=== PATIENT | female | born 1930 | race Caucasian/White ===

== ENCOUNTER 2017-12-09 10:26 | Inpatient (IN) | payer OTHER ==
[2017-12-09 11:24] LABS: Protime INR 1.04
--- NOTE | 2017-12-09 11:27 | RAD REPORT ---
EXAM DESCRIPTION: RAD - Chest Single View - 12/09/2017 11:08 am CLINICAL HISTORY: Hypertension, altered consciousness. COMPARISON: 04/21/2012 FINDINGS: Portable technique limits examination quality. The lungs are grossly clear. The heart is normal in size. No displaced fractures.Mildly tortuous thor acic aorta. IMPRESSION: No acute intrathoracic process suspected.
--- NOTE | 2017-12-09 11:32 | RAD REPORT ---
EXAM DESCRIPTION: CT - Head Brain Wo Cont - 12/09/2017 11:24 am CLINICAL HISTORY: Altered consciousness COMPARISON: None. TECHNIQUE: All CT scans are performed using dose optimization technique as appropriate and may inclu de automated exposure control or mA/KV adjustment according to patient size. FINDINGS: No intracranial hemorrhage, hydrocephalus or extra-axial fluid collection.Advanced general ized brain atrophy is present with moderate to advanced periventricular and deep white matter chronic microvascular ischemic changes.No areas of brain edema or evidence of midline shift. The paranasal sinuses and mastoids are clear. The calvarium is intact. IMPRESSION: No acute intracranial abnormality.
[2017-12-09 11:33] LABS: Potassium 4.2 mEq/L (3.6-5.0)
[2017-12-09 11:38] LABS: Absolute Monocytes 1.9 K/uL (0.1-1.3); Basophils % 0.6 % (0-1.3); Eosinophils % 0.3 % (0-4.4); Hematocrit 42.1 % (36.0-45.0); Lymphocytes % 24.9 % (15.3-44.8); MCH 26.8 pg (27.0-35.0); MCV 83.1 fL (80-100); MPV 8.8 fL (7.6-11.3); Monocytes % 9.5 % (3.3-12.3); RBC Red Blood Cell Count 5.07 M/uL (3.86-4.86)
[2017-12-09 11:39] LABS: Albumin 3.9 g/dL (3.2-5.5); Bilirubin Direct 0.1 mg/dL (0-0.2); Bilirubin Total 0.9 mg/dL (0.3-1.2); Protein, Total 6.9 g/dL (6.0-8.3)
[2017-12-09] MEDS ORDERED: NA CHLORIDE 0.9% 1,000 ML ONE (12:16)
--- NOTE | 2017-12-09 12:39 | EDPHYS ---
Physician Documentation [facility] Name: Jackie Richards Age: 87 yrs Sex: Female : 1930 Arrival Date: 12/09/2017 Time: 10:30 Bed 5 Private MD: ED Physician Catracho Ford HPI: 12/09 12:26 This 87 yrs old Female presents to ER via Wheelchair with complaints of gs Altered Mental Status weakness. 12:26 The patient presents to the emergency department with weakness of the left lower gs extremity, that is severe, difficulty standing, tremor. Onset: The symptoms/episode began/occurred 2 day(s) ago. Associated signs and symptoms: Pertinent negatives: fever. Severity of symptoms: At their worst the symptoms were severe in the emergency department the symptoms are unchanged. Current symptoms: confusion, paralysis or paresis, of the right leg and left leg, that is moderate. The patient has experienced similar episodes in the past, a few times. The patient has not recently seen a physician. Historical: - Allergies: 10:37 PENICILLINS; lk1 - Home Meds: 10:40 levothyroxine 25 mcg tab 1 tab every other day [Active]; amlodipine 2.5 mg tab 2 tabs lk1 once daily [Active]; aspirin 81 mg Oral chew 1 tab once daily [Active]; Zetia 10 mg Oral tab 1 tab once daily [Active]; Aricept 10 mg Oral tab 1 tab once daily [Active]; calcitriol 0.25 mcg oral cap 1 cap every other day [Active]; memantine 5 mg oral tab 1 tabs daily [Active]; - PMHx: 10:37 ckd; Hypertension; Dementia; lk1 10:40 Hypothyroidism; High Cholesterol; lk1 - Immunization history:: Adult Immunizations up to date. - Social history:: Smoking status: Patient/guardian denies using tobacco. ROS: 12:26 All other systems are negative. gs Exam: 12:26 Head/Face: Normocephalic, atraumatic. Eyes: Pupils equal round and reactive to light, gs extra-ocular motions intact. Lids and lashes normal. Conjunctiva and sclera are non-icteric and not injected. Cornea within normal limits. Periorbital areas with no swelling, redness, or edema. ENT: Nares patent. No nasal discharge, no septal abnormalities noted. Tympanic membranes are normal and external auditory canals are clear. Oropharynx with no redness, swelling, or masses, exudates, or evidence of obstruction, uvula midline. Mucous membranes moist. Neck: Trachea midline, no thyromegaly or masses palpated, and no cervical lymphadenopathy. Supple, full range of motion without nuchal rigidity, or vertebral point tenderness. No Meningismus. Chest/axilla: Normal chest wall appearance and motion. Nontender with no deformity. No lesions are appreciated. 12:26 Respiratory: Lungs have equal breath sounds bilaterally, clear to auscultation and percussion. No rales, rhonchi or wheezes noted. No increased work of breathing, no retractions or nasal flaring. Abdomen/GI: Soft, non-tender, with normal bowel sounds. No distension or tympany. No guarding or rebound. No evidence of tenderness throughout. Back: No spinal tenderness. No costovertebral tenderness. Full range of motion. Skin: Warm, dry with normal turgor. Normal color with no rashes, no lesions, and no evidence of cellulitis. MS/ Extremity: Pulses equal, no cyanosis. Neurovascular intact. Full, normal range of motion. 12:26 Constitutional: The patient appears awake. 12:26 Cardiovascular: Rate: normal, Rhythm: irregular, Pulses: no pulse deficits are appreciated. 12:26 ECG was reviewed by the Attending Physician. 12:26 Neuro: Orientation: Not oriented to person, Cranial nerves: CN II- XII are normal as tested, Motor: moves all fours, Strength is 2/5 in the left leg, Sensation: no obvious gross deficits, Abnormal movements: resting tremor, is located in the right arm, left arm, right leg and left leg. Vital Signs: 11:52 BP 171 / 87; Pulse 82; Resp 17; Pulse Ox 97% on R/A; aj 12:10 BP 160 / 100; Pulse 89; Resp 22; Temp 98.5(O); Pulse Ox 94% on R/A; Weight 74.84 kg; aj Height 5 ft. 4 in. (162.56 cm); 14:00 BP 173 / 135; Pulse 88; Resp 17; Pulse Ox 99% on R/A; aj 12:10 Body Mass Index 28.32 (74.84 kg, 162.56 cm) aj NIH Stroke Scale Scores: 12:26 NIHSS Score: 6 gs MDM: 10:57 Patient medically screened. 12:26 Data reviewed: vital signs, nurses notes. Physician consultation: Dave Perez MD regarding consult, and will see patient in inpatient room. ED course: no tpa out of window. 12/09 10:56 Order name: CPK; Complete Time: 11:44 12/09 10:56 Order name: Basic Metabolic Panel; Complete Time: 11:44 12/09 10:56 Order name: BNP; Complete Time: 11:44 12/09 10:56 Order name: CBC with Diff; Complete Time: 11:44 12/09 10:56 Order name: LFT's; Complete Time: 11:44 12/09 10:56 Order name: Magnesium; Complete Time: 11:44 12/09 10:56 Order name: PT-INR; Complete Time: 11:33 12/09 10:56 Order name: Troponin (emerg Dept Use Only); Complete Time: 11:44 12/09 10:56 Order name: XRAY Chest (1 view); Complete Time: 11:33 12/09 10:56 Order name: CT Head Brain wo Cont; Complete Time: 11:33 12/09 11:45 Order name: Lactate; Complete Time: 13:57 12/09 11:45 Order name: Procalcitonin; Complete Time: 13:57 12/09 11:45 Order name: Urinalysis 12/09 12:27 Order name: Urine Dipstick--Ancillary (enter results); Complete Time: 13:57 12/09 10:56 Order name: EKG; Complete Time: 10:57 12/09 10:56 Order name: Cardiac monitoring; Complete Time: 11:01 12/09 10:56 Order name: EKG - Nurse/Tech; Complete Time: 11:02 12/09 10:56 Order name: IV Saline Lock; Complete Time: 11: 12/09 10:56 Order name: Labs collected and sent; Complete Time: 11:02 12/09 10:56 Order name: O2 Per Protocol; Complete Time: 11:02 12/09 10:56 Order name: O2 Sat Monitoring; Complete Time: 11: 12/09 10:56 Order name: Urine Dipstick-Ancillary (obtain specimen); Complete Time: 12:22 12/09 12:53 Order name: CONS Physician Consult EDMS EC:26 Rate is 84 beats/min. Rhythm is regular. Q waves are Old. T waves are Flattened. Clinical impression: Abnormal EKG without significant change. Interpreted by me. Administered Medications: 12:09 Drug: NS 0.9% 1000 ml Route: IV; Rate: 1 bolus; Site: left antecubital; aj 14:00 Drug: Enalaprilat 1.25 mg Route: IV; Rate: bolus; Site: left antecubital; aj Disposition: 12/09/17 12:39 Hospitalization ordered by Boubacar Casillas for Inpatient Admission. Preliminary diagnosis is Cerebral infarction. - Bed requested for Telemetry/MedSurg (Inpatient). - Status is Inpatient Admission. hb - Condition is Stable. - Problem is new. - Symptoms are unchanged. UTI on Admission? Yes NIH Stroke Scale - NIH Stroke Score Date: 12/09/2017 Time: 12:26 Total Score = 6 1a. Level of Consciousness (LOC) - 0(Alert) 1b. Level of Consciousness (LOC) (Year \T\ Age) - 1(One) 1c. LOC Commands (Open \T\ Closes Eyes/Manager Purchasing) - 0(Both) 2. Best Gaze (Lateral Gaze Paresis) - 0(Normal) 3. Visual Field Loss - 0(No visual loss) 4. Facial Palsy - 0(Normal) 5a. Left Arm: Motor (10-second hold) - 0(No drift) 5b. Right Arm: Motor (10-second hold) - 0(No drift) 6a. Left Leg: Motor (5-second hold - always test supine) - 3(No effort against gravity) 6b. Right Leg: Motor (5-second hold - always test supine) - 2(Drift, some effort against gravity) 7. Limb Ataxia (finger/nose \T\ heel/black - test with eyes open) - 0(Absent) 8. Sensory Loss (pinprick arms/legs/face) - 0(Normal) 9. Best Language: Aphasia (description/naming/reading) - 0(No aphasia) 10. Dysarthria (speech clarity - read or repeat words) - 0(Normal) 11. Extinction and Inattention (visual/tactile/auditory/spatial/personal) - 0(No abnormality) Initials: gs Signatures: Dispatcher [employer] Misa Ramsey Amanda RN RN Jamila Sanabria, RN RN lk1 Alannah Chávez RN RN Catracho Carter MD MD gs
--- NOTE | 2017-12-09 12:39 | ER ---
Nurse's Notes [facility] Name: Jackie Richards Age: 87 yrs Sex: Female : 1930 Arrival Date: 12/09/2017 Time: 10:30 Bed 5 Private MD: Diagnosis: Cerebral infarction Presentation: 12/09 10:35 Presenting complaint: Child states: "Since Saturday she has not been able to walk with lk1 her walker and she keeps staring us in the face, but she isn't responsive to us. She also has been shaking really bad. Transition of care: patient was not received from another setting of care. Onset of symptoms was December 07, 2017. Care prior to arrival: None. 10:35 Method Of Arrival: Wheelchair lk1 10:35 Acuity: LEON 2 lk1 Triage Assessment: 10:40 General: Appears in no apparent distress. Behavior is calm, cooperative, appropriate lk1 for age. Pain: Denies pain. Neuro: Level of Consciousness is awake, confused, Oriented to person. 10:40 Cardiovascular: Capillary refill is brisk Patient's skin is warm and dry. Respiratory: lk1 Airway is patent Respiratory effort is even, unlabored, Respiratory pattern is regular, symmetrical. Historical: - Allergies: 10:37 PENICILLINS; lk1 - Home Meds: 10:40 levothyroxine 25 mcg tab 1 tab every other day [Active]; amlodipine 2.5 mg tab 2 tabs lk1 once daily [Active]; aspirin 81 mg Oral chew 1 tab once daily [Active]; Zetia 10 mg Oral tab 1 tab once daily [Active]; Aricept 10 mg Oral tab 1 tab once daily [Active]; calcitriol 0.25 mcg oral cap 1 cap every other day [Active]; memantine 5 mg oral tab 1 tabs daily [Active]; - PMHx: 10:37 ckd; Hypertension; Dementia; lk1 10:40 Hypothyroidism; High Cholesterol; lk1 - Immunization history:: Adult Immunizations up to date. - Social history:: Smoking status: Patient/guardian denies using tobacco. Screenin:07 Abuse screen: Denies threats or abuse. Denies injuries from another. Nutritional aj screening: No deficits noted. Tuberculosis screening: No symptoms or risk factors identified. Fall Risk Gait- Weak (10 pts.). Mental Status- Overestimates/Forgets Limitations (15 pts.). 13:30 Patient has been NPO before screening. The patient is not alert, or is unable to follow hb commands. Bedside swallow screening discontinued. Patient kept NPO until cleared by Speech Therapy or Physician. The patient failed the bedside swallow screening. The patient will be kept NPO until cleared by Speech Therapy or Physician. Provider notified of bedside swallow screening results: Catracho Ford MD. Assessment: 12:07 General: Appears in no apparent distress. comfortable, Behavior is calm, cooperative, aj quiet. Neuro: Level of Consciousness is awake, confused, Oriented to none. Respiratory: Airway is patent Respiratory effort is even, unlabored, Respiratory pattern is regular, symmetrical. :. Derm: Skin is intact, is healthy with good turgor, Skin is pink, warm \\T\\ dry. normal. Vital Signs: 11:52 BP 171 / 87; Pulse 82; Resp 17; Pulse Ox 97% on R/A; aj 12:10 BP 160 / 100; Pulse 89; Resp 22; Temp 98.5(O); Pulse Ox 94% on R/A; Weight 74.84 kg; aj Height 5 ft. 4 in. (162.56 cm); 14:00 BP 173 / 135; Pulse 88; Resp 17; Pulse Ox 99% on R/A; aj 12:10 Body Mass Index 28.32 (74.84 kg, 162.56 cm) NIH Stroke Scale Scores: 12:26 NIHSS Score: 6 ED Course: 10:30 Patient arrived in ED. cp 10:31 Catracho Ford MD is Attending Physician. gs 10:36 Triage completed. lk1 10:40 Arm band placed on right wrist. lk1 11:01 Inserted saline lock: 22 gauge in left forearm, using aseptic technique. Blood jb1 collected. 11:07 X-ray completed. Portable x-ray completed in exam room. Patient tolerated procedure mh1 well. 11:07 XRAY Chest (1 view) In Process Unspecified. EDMS 11:24 CT Head Brain wo Cont In Process Unspecified. EDMS 12:06 Jadyn Scott, RN is Primary Nurse. aj 12:07 Patient has correct armband on for positive identification. Placed in gown. Call light aj in reach. Side rails up X2. Adult w/ patient. 12:07 Straight cath inserted, using sterile technique, 16 Fr. Specimen obtained. Patient aj tolerated well. 12:37 Boubacar Casillas MD is Hospitalizing Provider. gs Administered Medications: 12:09 Drug: NS 0.9% 1000 ml Route: IV; Rate: 1 bolus; Site: left antecubital; aj 14:00 Drug: Enalaprilat 1.25 mg Route: IV; Rate: bolus; Site: left antecubital; aj Outcome: 12:39 Decision to Hospitalize by Provider. gs 14:29 Patient left the ED. NIH Stroke Scale - NIH Stroke Score Date: 12/09/2017 Time: 12:26 Total Score = 6 1a. Level of Consciousness (LOC) - 0(Alert) 1b. Level of Consciousness (LOC) (Year \\T\\ Age) - 1(One) 1c. LOC Commands (Open \\T\\ Closes Eyes/Natural Resources Engineer) - 0(Both) 2. Best Gaze (Lateral Gaze Paresis) - 0(Normal) 3. Visual Field Loss - 0(No visual loss) 4. Facial Palsy - 0(Normal) 5a. Left Arm: Motor (10-second hold) - 0(No drift) 5b. Right Arm: Motor (10-second hold) - 0(No drift) 6a. Left Leg: Motor (5-second hold - always test supine) - 3(No effort against gravity) 6b. Right Leg: Motor (5-second hold - always test supine) - 2(Drift, some effort against gravity) 7. Limb Ataxia (finger/nose \\T\\ heel/black - test with eyes open) - 0(Absent) 8. Sensory Loss (pinprick arms/legs/face) - 0(Normal) 9. Best Language: Aphasia (description/naming/reading) - 0(No aphasia) 10. Dysarthria (speech clarity - read or repeat words) - 0(Normal) 11. Extinction and Inattention (visual/tactile/auditory/spatial/personal) - 0(No abnormality) Initials: Signatures: Dispatcher [employer] Anthony Batista jb1 Jadyn Scott, RN RN Donna Obrien 1 Jose Elias Romero PA PA cp Kluge, Leah, RN RN lk1 Alannah Chávez RN RN hb Starr, Gregory, MD MD
--- NOTE | 2017-12-09 12:42 | EKG ---
Test Date: 2017-12-09 Test Time: 10:56:13 Core Extruder: [place] MEASUREMENT RESULTS: Intervals: Rate: 84 LA: 158 QRSD: 110 QT: 412 QTc: 486 [place]: P: 24 LA: 158 QRS: -49 T: 102 INTERPRETIVE STATEMENTS: Sinus rhythm with premature atrial complexes Left axis deviation Intraventricular conduction delay Cannot rule out Anterior infarct Abnormal ECG Compared to ECG 04/21/2012 09:19:03 Atrial premature complex(es) now present Electronically Signed On 12-09-17 12:41:46 CDT by Adalberto Parish
[2017-12-09 12:49] LABS: Urine Blood TRACE (NEG); Urine Glucose NEGATIVE (NEG); Urine Protein 1+ (NEG); Urine Specific Gravity 1.025 (1.005-1.030)
[2017-12-09] MEDS ORDERED: ACETAMINOPHEN 500 MG TAB PO PRN (12:50)
[2017-12-09] MEDS ORDERED: ENALAPRILAT 1.25 MG/ML VIAL IV ONE (14:15)
[2017-12-09] MEDS: NA CHLORIDE 0.9% 1,000 ML IV SCH ×2 (15:39→23:00)
[2017-12-09] MEDS ORDERED: levoFLOXacin 250 MG TAB PO ONE (16:50)
[2017-12-09] MEDS ORDERED: ASPIRIN 81 MG CHEWABLE TABLET PO SCH (18:30)
[2017-12-09] MEDS: AMLODIPINE 2.5 MG TAB PO SCH (23:04)
[2017-12-09] MEDS: DONEPEZIL HCL 5 MG TAB PO SCH (23:04)
[2017-12-09] MEDS: MEMANTINE HCL 10 MG TABLET PO SCH (23:04)
--- NOTE | 2017-12-10 02:40 | HP ---
Date of Admission: 12/09/2017 History Of Present Illness: An 87-year-old female, who was brought to the emergency room by family s aying that the patient's mental status got worst and she is more fatigued. The patient herself has A lzheimer's disease, for which review of systems complaints is not obtainable from her at this time. Workup in the emergency room showed the possible CVA along with UTI. She was admitted for that. Past Medical History: 1.Alzheimer's disease. 2.Hypothyroidism. 3.Hypertension. 4.Hyperlipidemia. 5.Osteoporosis. 6.Chronic renal insufficiency. Social History: No smoking, alcohol, or drug abuse. Family History: Noncontributory. Medications: Include levothyroxine 25 mg daily, amlodipine 2.5 mg once a day, aspirin 81 mg p.o. comfort ly, Zetia 10 mg p.o. daily, Aricept 10 mg p.o. daily, calcitonin 0.25 mg p.o. every other day, memant ine 5 mg p.o. daily. Allergies: INCLUDE STATINS, WELCHOL, LISINOPRIL, AND PENICILLIN. Physical Examination: Vital Signs: Blood pressure 170/100, pulse 88, temperature 98.5. Heart: Regular rate and rhythm. Chest: Clear to auscultation. Abdomen: Soft, nontender. Bowel sounds are active. Extremities: No edema. No cyanosis. Peripheral pulses are felt. Neurological examination: The patient is alert. She is not oriented. She would not communicate wel l for interview or for complaints. Her motor power; she moves all her extremities. However, she see med to be left lower extremity weaker than the rest of her extremities. She has gag reflex intact. Cranial nerves 2 through 12 intact. I did not notice tremors at the time of me interviewing the joe ent. Diagnostic Data: Chest x-ray, no acute pathology. EKG, sinus rhythm, premature atrial complexes, le ft axis deviation, interventricular conduction delay. Head CT, no acute pathology. Laboratory Data: White cell count 20,000, neutrophils however at 8.8, lymphocytes at 5, monocytes 1. 9. Chemistry; BUN 37, calcium of 1.67. GFR at 29. Rapid troponin 0.04. BNP 140. Urinalysis showe d possible UTI with positive leukocytes. Assessment And Plan: 1.Deterioration in mental status as noted by family and the patient not communicating as well. We w ill go ahead and order MRI protocol for the head and neck and carotid ultrasound. I have asked Neuro logy to see the patient. 2.Possible urinary tract infection. I went ahead and I will start the patient on Rocephin IV 1 g da augusto. 3.We will check the patient's thyroid stimulating hormone. We will follow her electrolytes for tele marketing executive ishmael renal insufficiency and follow up CBC for leukocytosis. 4.Increased level of troponin with a nonrevealing EKG. We will ask Cardiology opinion about that al though that could be elevated due to her chronic renal insufficiency. We will continue the rest of h er home medicines for her chronic medical problems. Look orders for details. LEIGH ANN/MODL Voice ID: [id number]
[2017-12-10 04:52] LABS: Absolute Lymphocytes (CBC) 5.9 K/uL (0.7-4.9); Absolute Monocytes 1.7 K/uL (0.1-1.3); Absolute Neutrophil 9.5 K/uL (1.8-8.0); Basophils % 0.8 % (0-1.3); Eosinophils % 0.6 % (0-4.4); Hematocrit 36.7 % (36.0-45.0); Lymphocytes % 33.9 % (15.3-44.8); MCH 27.2 pg (27.0-35.0); MPV 8.7 fL (7.6-11.3); Monocytes % 9.8 % (3.3-12.3); RBC Red Blood Cell Count 4.43 M/uL (3.86-4.86)
[2017-12-10] MEDS: NA CHLORIDE 0.9% 1,000 ML IV SCH ×3 (05:18→18:23)
[2017-12-10 05:45] LABS: Thyroid Stimulating Hormone 2.71 uIU/mL (0.34-5.60)
--- NOTE | 2017-12-10 08:47 | RAD REPORT ---
EXAM DESCRIPTION: VASCarotid Artery Bilateral12/09/2017 11:08 pm CLINICAL HISTORY: CVA COMPARISON: None FINDINGS: The velocity of the right internal carotid artery equals 52 cm/sec. The right ICA/CCA rati o 0.8 The velocity of the left internal carotid artery equals 39 cm/sec. The left ICA/CCA ratio 0.7 Mild plaque is present within the carotid arteries. The vertebral arteries demonstrate antegrade flow IMPRESSION: Mild plaque within the carotid arteries without evidence of a hemodynamically significan t stenosis
[2017-12-10] MEDS ORDERED: EZETIMIBE 10 MG TAB PO SCH (09:00)
[2017-12-10] MEDS: AMLODIPINE 2.5 MG TAB PO SCH ×2 (10:02→21:33)
[2017-12-10] MEDS: CALCITROL 0.25 MCG CAP PO SCH (10:03)
--- NOTE | 2017-12-10 10:20 | RAD REPORT ---
EXAM DESCRIPTION: MRI - Stroke Protocol - 12/09/2017 10:30 pm CLINICAL HISTORY: Bilateral leg numbness/weakness. COMPARISON: 2016. TECHNIQUE: Axial, sagittal and coronal magnetic resonance imaging of the brain was obtained. 17 mL o f MultiHance was administered intravenously. MRA head and neck was also performed. Source images were reviewed and reconstructed at 360 degrees rotation. FINDINGS: Diffusion weighted/ADC mapping demonstrates abnormal signal within the white matter of the left parietal lobe. The largest area measures 2.4 x 0.9 cm. Several additional smaller areas of abno rmal signal are noted. These represent acute infarcts. Moderate to marked additional signal within periventricular, deep and subcortical white matter likely represents ischemic changes secondary to small vessel disease. No abnormal enhancement within the brain is seen. Cerebral atrophy is noted. An extra-axial fluid collection is not seen. Fluid within the sinuses/mastoids is not noted. Mild plaque within the carotid arteries is noted. Vertebral arteries are codominant. The A-1 segment to left anterior cerebral artery is hypoplastic. Anterior cerebral, middle cerebral, posterior cerebral, internal carotid and basilar arteries do not demonstrate a significant acute stenosis. An aneurysm is not seen. IMPRESSION: 1. Multiple areas of acute infarction involving the left parietal lobe. Given the distri bution these likely are embolic. The heart would be the most likely source. 2. No significant abnormality involving the arteries of the head and neck. 3. The examination was discussed with Dr. Casillas at 10:00 a.m. on 12/10/2017.
[2017-12-10] MEDS: ENOXAPARIN 30 MG/0.3 ML SQ SCH (11:44)
--- NOTE | 2017-12-10 16:25 | PN ---
Subjective: The patient is looking better today. She has better eye contact and more alert. Howeve r, she would not really communicate or answer questions about her. Objective: Vital Signs: Blood pressure 145/90, pulse 70, temperature 97.2. Heart: Regular rate and rhythm. Chest: Clear to auscultation. Abdomen: Soft, benign. Bowel sounds are active. Extremities: No edema or cyanosis. Peripheral pulses are felt. Neurological Examination: As mentioned above. Alert in orientation and her motor power, no change. Sensation, she withdraws, no change. Diagnostic Data: MRI of the head and neck showed multiple areas of acute infarction in the left loni etal lobe, possibly embolic. Head and neck blood vessels did not show any abnormality. Consideratio n of the heart as a source. Laboratory Data: White cell count 17.4, dropped from 20,000. Chemistry: Chloride 113, BUN 39, crea tinine 1.49. TSH was 2.17. Procalcitonin 0.14. Lipid profile noted also. Assessment And Plan: 1.Acute CVA in the left parietal lobe, possibly embolic considering the heart as possibility. I harman l put the patient on Lovenox 30 mg subcu b.i.d. I have asked for cardiac echo ultrasound, and Neurol ogy and Cardiology consult are still pending. 2.Leukocytosis. White cell count has dropped. I think the patient's leukocytosis etiology from pos sible UTI and also demargination with a CVA is improving. 3.Chronic renal insufficiency, improved. We will go ahead and also monitor the patient's electrolytes and CBC. Look orders for details. MFS/MODL Voice ID: [id number] Report ID: [id number]
[2017-12-10] MEDS: DONEPEZIL HCL 5 MG TAB PO SCH (21:32)
[2017-12-10] MEDS: MEMANTINE HCL 10 MG TABLET PO SCH (21:32)
[2017-12-10] MEDS: ATORVASTATIN 20 MG TAB PO SCH (21:36)
--- NOTE | 2017-12-10 23:25 | CON ---
Date of Consultation: 12/10/2017 Time: 1850 hours. Reason: Possible stroke. History Of Present Illness: An 87-year-old lady, known to myself with history of Alzheimer's dementi a, brought to the emergency department yesterday with difficulty walking since Saturday and some inte rmittent tremor. Evaluation in the emergency department was significant for a stroke scale of 6 and finding of weakness in the legs. Since being admitted, the patient has had a brain MRI demonstrating acute infarction in right parietal region, multiple areas of acute infarct some of which are fairly significant. The largest 2.4 x 0.9 cm suggestive of cardioembolic phenomenon. The arteries of the h ead and neck were normal. No intracranial stenosis or carotid stenosis. Doppler likewise demonstrat es no carotid stenosis. She is in sinus rhythm now. EKGs normal. Troponin is elevated. White coun t is elevated as well. The patient has a slight urinary tract infection. She is on Lovenox as well as aspirin. Consultation was requested. Past Medical History: Dementia, hypothyroidism, hypertension. Medications: Zetia, Aricept, Synthroid, aspirin, calcitriol, Namenda, and Norvasc. Social History: Never smoked. Requires assistance with activities of daily living. Family History: No family history of premature vascular disease. Review of Systems: General: Chronically ill. Eyes: Denies. Ears, nose, throat: Some dysphagia. Cardiovascular: Hypertension. Pulmonary: Negative. GI: Negative. : Urinary tract infection. Musculoskeletal: Leg weakness. Neurologic: As noted. Psychiatric: Dementia. Endocrine: Hypothyroidism. Hematologic: Negative. Physical Examination: Vital Signs: Temperature 97.8, pulse 69, respiratory rate 17, blood pressure 156/74. General: Pleasant lady, lying in bed, confused but cooperative and not agitated. She is awake, aler t. Follow commands. Knows she is in the hospital. Knows her name. HEENT: Pupils reactive. Ocular motion full. [place] full. Face is symmetric. Tongue is midline. Soft palate elevates bilaterally. Neck: Supple. Extremities: Examination of her extremities reveals weakness right lower extremity 3/5. Upper extre mities full strength. Left leg 4+ for effort. Sensation intact. Reflexes 1/4 right toe upgoing, le ft toe downgoing. Cerebellar exam demonstrates no ataxia. Pertinent Laboratory Data: White count 17.4. Creatinine 1.49. Troponin as noted. Procalcitonin 0. 14. TSH normal. LDL 83. MRI as noted. Impression: Acute cerebral infarction. Plan: Continue Lovenox as ordered. Echo is pending. Change Zetia to Lipitor 40. Physical therapy evaluation. The patient may need some type of group home placement. She is a poor candidate for s ystemic anticoagulation at home. Thank you for the consult. We will continue to follow with you. GLORIA Voice ID: [id number] Report ID: [id number]
--- NOTE | 2017-12-11 04:19 | CON ---
Date of Consultation: 12/10/2017 She was admitted on 12/09/[address] Casillas's service. I am seeing the patient because of elevated troponin. History Of Present Illness: Ms. Richards was seen by me on 12/10/2017. She came in on 12/09/2017 with severe hypertension, blood pressure of 173/135, and it was found that she had a CVA. Her main compl aint was altered mental status and weakness. Denied any cardiac symptoms. She is very difficult to get a good history from. Symptoms had occurred 2 days prior to admission. She had weakness on both the left and right legs and confusion when she came in. Apparently, has had similar episodes in the past. Her troponin was elevated and this is why I was consulted. Allergies: PENICILLIN. Past Medical History: Includes dementia, hypertension, chronic kidney disease, hypothyroidism, and d yslipidemia. Medications: Includes Synthroid, amlodipine, aspirin, Zetia, Aricept. Review of Systems: Negative. Social History: Negative. Family History: Noncontributory. Physical Examination: General: She was rather quiet and somnolent and not responsive to conversations. Seems to be alert and oriented to name, but I could not acquisition analyst her other orientations. Vital Signs: Her vital signs when I saw her today were stable. Blood pressure is 138/72. She has a normal rhythm. She is afebrile. Her I's and O's were adequate. O2 saturation was adequate. HEENT: Exam is negative. Neck: Supple without any bruit, lymphadenopathy, JVD, or thyromegaly. Chest: Clear. Cardiac exam: Revealed a regular rhythm and rate with S4 gallops and aortic sclerosis murmur but no rubs. Abdomen: Benign. Extremities: No clubbing, cyanosis. She has some edema, trace. Diagnostic Studies: Her EKG showed normal sinus rhythm with left axis deviation and nonspecific inte rventricular conduction delay. Carotid Doppler did not show any hemodynamically significant stenosis . Her chest x-ray was normal. Head MRI and neck MRA showed multiple areas of acute infarction invol ving the left parietal lobe, presumably embolic. Her creatinine was 1.49. White count was 000. Tro ponin was 0.05 with a BNP of 140. Impression And Plan: 1.Elevated troponin, not clinically significant in the view of a stroke. It is only 0.05. No cardi ac symptoms reported. EKG is nonspecific. Chest x-ray showed no failure. 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 3.Dyslipidemia. 4.Hypertension, better controlled now. 5.Elevated white count, maybe urinary tract infection. She is on Levaquin now. 6.Hypothyroidism. 7.Chronic dementia. Plan: I think an echocardiogram is near is reasonable to get on Ms. Richards to make sure we are not d ealing with any thrombus or vegetation, which is a very unlikely scenario, but I will order that rega rdless. Otherwise, I agree with her present regimen and certainly agree with Dr. Perez's consultatio n. No further cardiac workup at this point beside her echocardiogram. KUSUM/BISHNU Voice ID: [id number] Report ID: [id number]
[2017-12-11 05:06] LABS: Absolute Lymphocytes (CBC) 5.4 K/uL (0.7-4.9); Absolute Monocytes 1.3 K/uL (0.1-1.3); Basophils % 0.7 % (0-1.3); Eosinophils % 3.1 % (0-4.4); Lymphocytes % 33.2 % (15.3-44.8); MCH 27.4 pg (27.0-35.0); MCV 83.5 fL (80-100); MPV 9.2 fL (7.6-11.3); Monocytes % 7.9 % (3.3-12.3); RBC Red Blood Cell Count 4.19 M/uL (3.86-4.86)
[2017-12-11] MEDS: LEVOTHYROXINE SOD 0.025 MG TAB PO SCH (05:38)
[2017-12-11 05:48] LABS: Potassium 3.8 mEq/L (3.6-5.0)
[2017-12-11] MEDS: NA CHLORIDE 0.9% 1,000 ML IV SCH ×2 (08:25→22:04)
[2017-12-11] MEDS: ENOXAPARIN 30 MG/0.3 ML SQ SCH (08:25)
[2017-12-11] MEDS: AMLODIPINE 2.5 MG TAB PO SCH ×2 (08:27→22:06)
--- NOTE | 2017-12-11 08:44 | ECHO ---
HEIGHT: 5 ft 4 in WEIGHT: 165 lb 0 oz DATE OF STUDY: 12/10/[address]: Boubacar Casillas MD 2-DIMENSIONAL: YES M.MODE: YES DOPPLER: YES COLOR FLOW: YES TDS: YES PORTABLE: NO DEFINITY: NO BUBBLE STUDY: NO DIAGNOSIS: EMBOLIC CEREBRAL VASCULAR ACCIDENT CARDIAC HISTORY: CATHERIZATION: NO SURGERY: NO PROSTHETIC VALVE: NO PACEMAKER: NO MEASUREMENTS (cm) DIASTOLIC (NORMALS) SYSTOLIC (NORMALS) IVSd 1.2 (0.6-1.2) LA Diam (1.9-4.0) LVEF 76% LVIDd 3.8 (3.5-5.7) LVIDs 2.1 (2.0-3.5) %FS 44% LVPWd 1.8 (0.6-1.2) Ao Diam 2.7 (2.0-3.7) 2 DIMENSIONAL ASSESSMENT: RIGHT ATRIUM: NORAML LEFT ATRIUM: NORMAL RIGHT VENTRICLE: NORMAL LEFT VENTRICLE: NORMAL TRICUSPID VALVE: NORMAL MITRAL VALVE: MITRAL ANNULAR CALCIFICATION PULMONIC VALVE: NORMAL AORTIC VALVE: SCLEROSIS PERICARDIAL EFFUSION: NONE AORTIC ROOT: NORMAL LEFT VENTRICULAR WALL MOTION: NORMAL. DOPPLER/COLOR FLOW: MILD TRICUSPID REGURGITATION. COMMENTS: TECHNICALLY DIFFICULT STUDY. MILD TRICUSPID REGURGITATION - NORMAL RIGHT VENTRICULAR SYSTOLIC PRESSURE. MITRAL ANNULAR CALCIFICATION. AORTIC SCLEROSIS. NORMAL LEFT VENTRICULAR SIZE AND FUNCTION. TECHNOLOGIST: LESLEY ESPINOZA
--- NOTE | 2017-12-11 09:50 | RAD REPORT ---
EXAM DESCRIPTION: RAD - Barium Swallow Modified - 12/11/2017 9:30 am CLINICAL HISTORY: Swallowing difficulty, aspiration. COMPARISON: None. TECHNIQUE: The patient was given liquid, semi-solid and solid forms of barium. Lateral view fluorosc opic imaging was performed in conjunction with [facility]. FINDINGS: Flash laryngeal penetration cleared with thin via straw. Mild pharyngeal residue on the vallecular with thin liquid. Poor oral bolus manipulation. Mild to moderate oral residue with all consistencies.
[2017-12-11] MEDS: ATORVASTATIN 20 MG TAB PO SCH (22:05)
[2017-12-11] MEDS: DONEPEZIL HCL 5 MG TAB PO SCH (22:06)
[2017-12-11] MEDS: MEMANTINE HCL 10 MG TABLET PO SCH (22:06)
--- NOTE | 2017-12-11 23:07 | PN ---
Reason: Stroke. Interval History: The patient is seen by Cardiology. Echo reviewed. No vegetation. No thrombus. She did pass a modified barium swallow for oral bolus manipulation. Only flash liquid penetration mo dified diet. Right leg still fairly weak. The patient is almost certainly going to require more str uctured environment. Post discharge, she will need 24 hours supervision. We will add Plavix today. Overlap that with aspirin per day and then discontinue the aspirin. White cell count is down to 16, 000. She received some Levaquin. Physical Examination: Vital Signs: On exam, she is afebrile. Vitals are stable. General: Awake, confused. HEENT: Ocular motion full. Face symmetric. Extremities: Right leg 3/5. Right upper extremity 4+. Upgoing toe on the right. Impression: Cerebral infarction. Dementia. Plan: Add Plavix. Statin change as noted. The patient is going to require 24 hours supervision on discharge. GLORIA Voice ID: [id number] Report ID: [id number]
--- NOTE | 2017-12-11 23:37 | PN ---
Date of Progress Note: 12/11/2017 Ms. Richards was seen by me on 12/10/2017 because of elevated troponin. The patient came in with CVA, hypertension, dementia, elevated troponin. Echocardiogram showed normal wall motion without any effu david or mitral valve prolapse. There was no evidence of myocardial infarction. The patient has impr kamla as far as her mental status. Her blood pressure is better controlled. I will sign off her case . KUSUM/BISHNU Voice ID: [id number] Report ID: [id number]
[2017-12-12 05:07] VITALS: BMI 27.7
[2017-12-12] MEDS: AMLODIPINE 2.5 MG TAB PO SCH (09:39)
[2017-12-12] MEDS: CLOPIDOGREL 75 MG TABLET PO SCH (09:40)
[2017-12-12] MEDS: ENOXAPARIN 30 MG/0.3 ML SQ SCH (09:40)
[2017-12-12] MEDS: CALCITROL 0.25 MCG CAP PO SCH (09:40)
[2017-12-12] MEDS: NA CHLORIDE 0.9% 1,000 ML IV SCH ×2 (11:00→16:08)
[2017-12-12] MEDS ORDERED: AMLODIPINE 2.5 MG TAB PO ONE (13:25)
--- NOTE | 2017-12-12 15:36 | PN ---
The patient had modified barium swallow, showed poor oral bolus manipulation with [id number] re sidue with all consistencies. MFS/MODL Voice ID: [id number] Report ID: [id number]
--- NOTE | 2017-12-12 15:42 | PN ---
Subjective: The patient today is looking much better. She also talked to me and answered that, she said she is feeling well, but she did not know why and had no complaint. Objective: Vital Signs: Blood pressure 170/85, pulse 70, and temperature 97.6. Heart: Regular rate and rhythm chest clear to auscultation. Abdomen: Soft, benign. Bowel sounds are active. Extremities: No edema. No cyanosis. Peripheral pulses are felt. Neurologic: the patient is well alert as mentioned above, but not oriented. Still has weakness, 2/5 , left lower extremity, more pronounced than the upper. Assessment And Plan: Left parietal cerebrovascular accident, multiple, clinically stabilizing. Cont inue current treatment. Computer Designer working transfer to long-term and also rehab for physical therapy. OT and PT consults been asked for, pending the results on that. Otherwise, the patient is clinically stable. MFS/MODL Voice ID: [id number] Report ID: [id number]
[2017-12-12] MEDS: ATORVASTATIN 20 MG TAB PO SCH (20:50)
[2017-12-12] MEDS: MEMANTINE HCL 10 MG TABLET PO SCH (20:50)
[2017-12-12] MEDS: AMLODIPINE 5 MG TAB PO SCH (20:51)
[2017-12-12] MEDS: DONEPEZIL HCL 5 MG TAB PO SCH (20:51)
[2017-12-12 22:05] VITALS: O2SAT 96
[2017-12-13] MEDS: NA CHLORIDE 0.9% 1,000 ML IV SCH ×2 (05:49→11:16)
[2017-12-13] MEDS: LEVOTHYROXINE SOD 0.025 MG TAB PO SCH (05:49)
[2017-12-13 06:06] LABS: Absolute Lymphocytes (CBC) 3.3 K/uL (0.7-4.9); Absolute Monocytes 1.3 K/uL (0.1-1.3); Absolute Neutrophil 12.5 K/uL (1.8-8.0); Basophils % 0.8 % (0-1.3); Hematocrit 38.5 % (36.0-45.0); MCH 27.5 pg (27.0-35.0); MCV 81.5 fL (80-100); MPV 8.2 fL (7.6-11.3); Monocytes % 7.6 % (3.3-12.3); RBC Red Blood Cell Count 4.72 M/uL (3.86-4.86)
[2017-12-13 06:15] LABS: Potassium 3.4 mEq/L (3.6-5.0)
[2017-12-13 07:42] LABS: Blood Morphology Comment NOT SEEN (NOT SEEN); Platelet Estimate ADEQ; Urine White Blood Cell Casts OK
[2017-12-13] MEDS: ENOXAPARIN 30 MG/0.3 ML SQ SCH (08:22)
[2017-12-13] MEDS: CLOPIDOGREL 75 MG TABLET PO SCH (08:23)
[2017-12-13] MEDS: AMLODIPINE 5 MG TAB PO SCH (08:23)
[2017-12-13 15:50] VITALS: BP 164/87; TEMP 97.4
--- NOTE | 2017-12-13 17:40 | PN ---
Date of Progress Note: 12/13/2017 Time: 12:50 Reason: Stroke. Interval History: The patient is sleeping, arousable. No worsening of the right-sided weakness, a l ittle right hemineglect apparent. Physical Examination: Today, on exam, she is afebrile. Vitals are stable. She is awake, alert, conversant, tangential, an d confused, which is a more longstanding problem. Right leg 3+, weakness right upper extremity 4+. Upgoing toe on the right. Does appear to have some right-sided hemineglect. Impression: Cerebral infarction, dementia. Plan: She is on Plavix. Stop the aspirin. Continue antihypertensive and statin. JORGE LUIS/MODL Voice ID: [id number] Report ID: [id number]
--- NOTE | 2018-04-11 15:46 | DS ---
Date of Discharge: 12/13/2017 History Of Present Illness: An 87-year-old, who was admitted to the hospital after presenting to the emergency room with acute mental status change, thought to be secondary to urine tract infection checo veliz with possible stroke Past Medical History: As per admit note. Social History: As per admit note. Family History: As per admit note. Medications: As per admit note. Allergies: PER ADMIT NOTE. Physical Examination: As per admit note. Diagnostic Data: As per admit note. Hospital Course: The patient was admitted to the hospital. The patient was put on neuro checks and IV antibiotic Rocephin for her UTI. MRI and stroke workup showed the patient had left parietal cereb rovascular accident. The patient was started on physical therapy and Neurology was consulted. Dr. Richi crane has seen the patient for her CVA and recommended to continue the patient on Plavix and continue treatment for hypertension and hyperlipidemia. The patient had Speech Therapy evaluated her and also Cardiology for increased troponins, and no further cardiac intervention was recommended. They did a n echo and her heart showed normal wall motion. [employer] Keeper were consulted and the patient's arr angement to be discharged to a care home with physical therapy. PT and OT were arranged for her a nd she was discharged to care home on Plavix 75 mg p.o. daily and atorvastatin 40 mg p.o. daily, and to continue home medications for blood pressure and rest of her home medicines. Look discharge orders for details. MFS/MODL Voice ID: [id number] Report ID: [id number]
== END 2017-12-13 17:10 | DRG 65 ==
LOC: ER 10:26 → ERHOLD 12:48 → 4TH 14:05
PROVIDERS: ADMIT Internal Medicine; ATTEND Internal Medicine
DX: I63.9 Cerebral infarction, unspecified (principal); N39.0 Urinary tract infection, site not specified; I10 Essential (primary) hypertension; E78.5 Hyperlipidemia, unspecified; E03.9 Hypothyroidism, unspecified; G30.9 Alzheimer's disease, unspecified; F02.80 Dementia in other diseases classified elsewhere, unspecified severity, without behavioral disturbance, psychotic disturbance, mood disturbance, and anxiety; M81.0 Age-related osteoporosis without current pathological fracture
CPT/HCPCS: 36415; 51702; 70450; 70544; 70549; 70553; 71045; 74230; 80048; 80061; 80076; 81003; 82550; 82607; 82962; 83605; 83735; 83880; 84145; 84443; 84484; 85025; 85610; 85652; 93005; 93306; 93880; 96374; 97163; 99284; A9577; J1650; J7030

== ENCOUNTER 2018-04-07 08:31 | Emergency (ER) | payer OTHER ==
[2018-04-07] MEDS ORDERED: LORazepam 2 MG/ML VIAL ONE (09:04)
[2018-04-07 09:33] LABS: Absolute Lymphocytes (CBC) 2.4 K/uL (0.7-4.9); Absolute Neutrophil 9.9 K/uL (1.8-8.0); Basophils % 0.8 % (0-1.3); Eosinophils % 3.9 % (0-4.4); Hematocrit 35.5 % (36.0-45.0); Lymphocytes % 17.3 % (15.3-44.8); MCH 26.6 pg (27.0-35.0); MCV 81.9 fL (80-100); MPV 7.9 fL (7.6-11.3); Monocytes % 7.2 % (3.3-12.3); RBC Red Blood Cell Count 4.34 M/uL (3.86-4.86)
--- NOTE | 2018-04-07 09:52 | RAD REPORT ---
EXAM DESCRIPTION: CT - [id number] - 04/07/2018 9:17 am CLINICAL HISTORY: Fall, head and neck injury COMPARISON: December 2017. TECHNIQUE: Axial 5 mm thick images of the head were obtained. Axial 2 mm thick images of the cervic al spine were obtained with sagittal and coronal reconstruction images generated and reviewed. All CT scans are performed using dose optimization technique as appropriate and may include automated exposure control or mA/KV adjustment according to patient size. FINDINGS: No intracranial hemorrhage, mass, edema or acute intracranial finding. No acute cortical based infarc tion. Patient has advanced chronic ischemic change and and advanced atrophy. Ventricular size is in p roportion. Intracranial findings are not substantially different from December. No extra-axial fluid col lections. Mastoid air cells and paranasal sinuses are clear. No globe or orbit abnormality seen. Mode rate-sized scalp hematoma overlies the frontal bone. Cervical body height and alignment are normal. Disc space narrowing throughout the cervical spine spa ring only C2-3. Multilevel foraminal encroachment from uncovertebral joint hypertrophy and facet hype rtrophy. No fracture or acute bony abnormality. No pathologic bone process. Central canal detail is i nherently limited. No paraspinal mass or hematoma. IMPRESSION: Prominent atrophy and chronic ischemic change similar to December 2017. No acute intracrani al finding seen. Moderate-sized frontal scalp hematoma. Underlying bone and sinus are intact. Prominent cervical spine degenerative change without acute finding.
[2018-04-07 09:54] LABS: Albumin 3.2 g/dL (3.4-5.0); Bilirubin Direct 0.1 mg/dL (0-0.2); Bilirubin Total 0.4 mg/dL (0.2-1.0); CKMB Creatine Kinase MB 6.5 ng/mL (0.3-3.6); Magnesium 2.1 mg/dL (1.8-2.4); Potassium 3.8 mmol/L (3.5-5.1); Protein, Total 6.1 g/dL (6.4-8.2)
[2018-04-07 10:33] LABS: Urine Blood NEGATIVE (NEG); Urine Glucose NEGATIVE (NEG); Urine Protein NEGATIVE (NEG); Urine pH 5.5 (5.0-7.0)
--- NOTE | 2018-04-07 10:36 | RAD REPORT ---
EXAM DESCRIPTION: RAD - Chest Single View - 04/07/2018 9:32 am CLINICAL HISTORY: COUGH Chest pain. COMPARISON: Chest Single View dated 12/09/2017; CHEST SINGLE VIEW dated 04/21/2012; CHEST SINGLE VIEW d ated 02/17/2010 FINDINGS: Portable technique limits examination quality. Elevation of the right hemidiaphragm is seen, unchanged. The lungs are grossly clear. The heart is up per limit normal in size. No displaced fractures. IMPRESSION: No significant change seen since 12/09/2017.
--- NOTE | 2018-04-07 12:22 | ER ---
Nurse's Notes [facility] Name: Jackie Richards Age: 87 yrs Sex: Female : 1930 Arrival Date: 04/07/2018 Time: 08:28 Bed 8 Private MD: Diagnosis: Fall due to bumping against object;Superficial injury of head-frontal hematoma;Unspecified kidney failure;Elevated white blood cell count Presentation: 04/07 08:28 Presenting complaint: EMS states: from [facility], witnessed fall by other residents, hj from her wheelchair, to the floor, with a large hematoma on the frontal area, no LOC; reports taking plavix; hx of AMS; baseline- A\T\Ox2; BP- 140/83; HR- 83; BGL- 138;. Transition of care: patient was received from another setting of care (long-term care facility), [facility]. Onset of symptoms was April 07, 2018. Risk Assessment: Do you want to hurt yourself or someone else? Patient reports no desire to harm self or others. Initial Sepsis Screen: Does the patient meet any 2 criteria? No. Patient's initial sepsis screen is negative. Does the patient have a suspected source of infection? No. Patient's initial sepsis screen is negative. Care prior to arrival: None. 08:28 Method Of Arrival: EMS: [facility] 08:28 Acuity: LEON 3 hj Triage Assessment: 08:37 General: Appears uncomfortable, well developed, Behavior is cooperative, restless, Pt sv has socks to both of her hands.. Pain: Denies pain. EENT: No signs and/or symptoms were reported regarding the EENT system. Neuro: Level of Consciousness is awake, alert, obeys commands, confused, Oriented to person, place, Moves all extremities. Speech is normal. Cardiovascular: Patient's skin is warm and dry. Pulses are 3+ in right radial artery and left radial artery Rhythm is sinus rhythm. Respiratory: Respiratory effort is even, unlabored, Respiratory pattern is regular, symmetrical. Derm: Skin is normal, Bruising that is yellow, on anterior aspect of left upper chest Decubitus located on left buttock. Pt also has a St 2 on the right buttock, appears to be an abscess that has opened about quarter size. approximately 1.5 cm to 2.5 cm is stage II. Musculoskeletal: Range of motion: intact in all extremities. Injury Description: Abrasion sustained to bridge of nose and upper jazlyn border is scabbed, Head injury sustained to forehead is closed, did not have loss of consciousness, was sustained 30-60 minutes ago. Historical: - Allergies: 08:35 PENICILLINS; sv - Home Meds: 08:35 Plavix 75 mg Oral tab 1 tab once daily [Active]; calcitriol 0.25 mcg Oral cap 1 cap sv Every other day [Active]; levothyroxine 25 mcg tab 1 tab Every other day [Active]; atorvastatin 40 mg oral tab 1 tab once daily [Active]; Aricept 10 mg Oral tab 1 tab once daily [Active]; memantine 5 mg Oral tab 1 tabs daily [Active]; amlodipine 2.5 mg tab 2 tabs once daily [Active]; - PMHx: 08:35 CKD; Dementia; High Cholesterol; Hypertension; Hypothyroidism; Cerebral infarction; sv cognitive communication deficit; Alzheimers; dysphagia; hyperparathyroidism; UTI; AMS; Hyperlipidemia; - Immunization history:: Adult Immunizations up to date. - Social history:: Smoking status: Patient/guardian denies using tobacco. - Ebola Screening: : No symptoms or risks identified at this time. - Family history:: not pertinent. Screenin:35 Abuse screen: Denies threats or abuse. Denies injuries from another. Nutritional sv screening: No deficits noted. Tuberculosis screening: No symptoms or risk factors identified. Fall Risk None identified. Assessment: 09:23 Reassessment: Patient appears in no apparent distress at this time. No changes from sv previously documented assessment. Patient and/or family updated on plan of care and expected duration. Pain level reassessed. 09:45 Reassessment: Patient appears in no apparent distress at this time. No changes from sv previously documented assessment. Patient and/or family updated on plan of care and expected duration. Pain level reassessed. 12:57 Reassessment: Report called to Alethea AGUILAR at [facility]. sv 13:00 Reassessment: Patient appears in no apparent distress at this time. No changes from sv previously documented assessment. Patient and/or family updated on plan of care and expected duration. Pain level reassessed. 14:12 Reassessment: Patient appears in no apparent distress at this time. No changes from sv previously documented assessment. Patient and/or family updated on plan of care and expected duration. Pain level reassessed. Vital Signs: 08:32 BP 146 / 82; Pulse 79; Resp 18; Temp 97.2; Pulse Ox 100% ; sv 09:23 BP 149 / 82; Pulse 77; Resp 20; Pulse Ox 99% ; sv 10:27 BP 150 / 70; Pulse 71; Resp 14; Pulse Ox 100% ; sv 11:08 BP 144 / 75; Pulse 70; Resp 17; Pulse Ox 99% on R/A; mh5 11:57 BP 163 / 80; Pulse 70; Resp 15; Pulse Ox 99% on R/A; mh5 [place] Coma Score: 09:23 Eye Response: spontaneous(4). Verbal Response: oriented(5). Motor Response: obeys abi commands(6). Total: 15. ED Course: 08:28 Patient arrived in ED. hj 08:28 Saad Pathak, RN is Primary Nurse. hj 08:29 Primary Nurse role handed off by Saad Pathak, RN sv 08:29 Enedelia Rosenberg, CRYSTAL is Primary Nurse. sv 08:32 Triage completed. hj 08:32 Jose Elias Drake MD is Attending Physician. abi 08:40 Arm band placed on right wrist. sv 08:40 Patient has correct armband on for positive identification. Placed in gown. Bed in low mh5 position. Call light in reach. Side rails up X2. Adult w/ patient. Warm blanket given. licensed nuclear control room operator on. Pulse ox on. NIBP on. 08:46 EKG done, by kennel technician. reviewed by Jose Elias Drake MD. at1 08:[address] via stretcher. sv 08:55 ED physician to see patient. sv 09:08 Patient [address] back from CT. sv 09:15 Initial lab(s) drawn, by me, sent to lab. sv 09:17 CT Head C Spine In Process Unspecified. EDMS 09:30 X-ray completed. Portable x-ray completed in exam room. Patient tolerated procedure la2 well. 09:31 XRAY Chest (1 view) In Process Unspecified. EDMS 09:45 Straight cath inserted, using sterile technique, 16 Fr. Specimen obtained. Returned sv clear yellow urine. Patient tolerated poorly. 09:51 Awaiting lab results. sv 14:18 No provider procedures requiring assistance completed. Patient did not have IV access sv during this emergency room visit. Administered Medications: 11:29 CANCELLED (not needed): Ativan 0.5 mg IVP once sv 11:29 CANCELLED (not needed): Ativan 0.5 mg IVP once sv Outcome: 12:21 Discharge ordered by . abi 14:12 Discharged to residential. Report called to Alethea at [facility] wheelchair service sv came to get pt 14:12 Condition: stable 14:12 Discharge instructions given to family, residential, Instructed on discharge instructions, follow up and referral plans. Demonstrated understanding of instructions, follow-up care. 14:18 Patient left the ED. sv Signatures: Dispatcher [employer] Enedelia Prince RN RN sv Anderson, Corey, MD MD cha gonzales, Amanda, transfer coordinator EKG Tat1 Saad Pathak RN RN hj Martinez, Maria [facility] [place] Nava2 Corrections: (The following items were deleted from the chart) 12:56 08:37 Derm: Skin is normal, Bruising that is yellow, on anterior aspect of left upper sv chest sv
--- NOTE | 2018-04-07 12:22 | EDPHYS ---
Physician Documentation [facility] Name: Jackie Richards Age: 87 yrs Sex: Female : 1930 Arrival Date: 04/07/2018 Time: 08:28 Bed 8 Private MD: ED Physician Jose Elias Drake HPI: 04/07 09:23 This 87 yrs old Female presents to ER via EMS with complaints of Head Injury abi Without LOC-Adult. 09:23 The patient or guardian reports deformity, injury, pain, swelling, tenderness. The abi complaints affect the forehead. Context of injury: The problem was sustained at a detention or assisted living facility. Onset: The symptoms/episode began/occurred just prior to arrival. Associated signs and symptoms: The patient has no apparent associated signs or symptoms. Severity of symptoms: At their worst the symptoms were mild, moderate, in the emergency department the symptoms are unchanged. The patient has experienced similar episodes in the past, a few times. Historical: - Allergies: 08:35 PENICILLINS; sv - Home Meds: 08:35 Plavix 75 mg Oral tab 1 tab once daily [Active]; calcitriol 0.25 mcg Oral cap 1 cap sv Every other day [Active]; levothyroxine 25 mcg tab 1 tab Every other day [Active]; atorvastatin 40 mg oral tab 1 tab once daily [Active]; Aricept 10 mg Oral tab 1 tab once daily [Active]; memantine 5 mg Oral tab 1 tabs daily [Active]; amlodipine 2.5 mg tab 2 tabs once daily [Active]; - PMHx: 08:35 CKD; Dementia; High Cholesterol; Hypertension; Hypothyroidism; Cerebral infarction; sv cognitive communication deficit; Alzheimers; dysphagia; hyperparathyroidism; UTI; AMS; Hyperlipidemia; - Immunization history:: Adult Immunizations up to date. - Social history:: Smoking status: Patient/guardian denies using tobacco. - Ebola Screening: : No symptoms or risks identified at this time. - Family history:: not pertinent. ROS: 09:23 Constitutional: Negative for fever, chills, and weight loss, Eyes: Negative for injury, abi pain, redness, and discharge, ENT: Negative for injury, pain, and discharge, Neck: Negative for injury, pain, and swelling, Cardiovascular: Negative for chest pain, palpitations, and edema, Respiratory: Negative for shortness of breath, cough, wheezing, and pleuritic chest pain, Abdomen/GI: Negative for abdominal pain, nausea, vomiting, diarrhea, and constipation, Back: Negative for injury and pain, : Negative for injury, bleeding, discharge, and swelling, MS/Extremity: Negative for injury and deformity, Skin: Negative for injury, rash, and discoloration, Psych: Negative for depression, anxiety, suicide ideation, homicidal ideation, and hallucinations, Allergy/Immunology: Negative for hives, rash, and allergies, Endocrine: Negative for neck swelling, polydipsia, polyuria, polyphagia, and marked weight changes, Hematologic/Lymphatic: Negative for swollen nodes, abnormal bleeding, and unusual bruising. 09:23 Neuro: Positive for altered mental status, headache. Exam: :23 Constitutional: This is a well developed, well nourished patient who is awake, alert, abi and in no acute distress. Eyes: Pupils equal round and reactive to light, extra-ocular motions intact. Lids and lashes normal. Conjunctiva and sclera are non-icteric and not injected. Cornea within normal limits. Periorbital areas with no swelling, redness, or edema. ENT: Nares patent. No nasal discharge, no septal abnormalities noted. Tympanic membranes are normal and external auditory canals are clear. Oropharynx with no redness, swelling, or masses, exudates, or evidence of obstruction, uvula midline. Mucous membranes moist. Neck: Trachea midline, no thyromegaly or masses palpated, and no cervical lymphadenopathy. Supple, full range of motion without nuchal rigidity, or vertebral point tenderness. No Meningismus. Chest/axilla: Normal chest wall appearance and motion. Nontender with no deformity. No lesions are appreciated. Cardiovascular: Regular rate and rhythm with a normal S1 and S2. No gallops, murmurs, or rubs. Normal PMI, no JVD. No pulse deficits. Respiratory: Lungs have equal breath sounds bilaterally, clear to auscultation and percussion. No rales, rhonchi or wheezes noted. No increased work of breathing, no retractions or nasal flaring. Abdomen/GI: Soft, non-tender, with normal bowel sounds. No distension or tympany. No guarding or rebound. No evidence of tenderness throughout. Back: No spinal tenderness. No costovertebral tenderness. Full range of motion. Female : Normal external genitalia. Skin: Warm, dry with normal turgor. Normal color with no rashes, no lesions, and no evidence of cellulitis. Psych: Awake, alert, with orientation to person, place and time. Behavior, mood, and affect are within normal limits. 09:23 Musculoskeletal/extremity: ROM: limited active range of motion, limited passive range of motion, in all extremities, Circulation is intact in all extremities. Sensation intact. Compartment Syndrome exam of affected extremity: is normal. DVT Exam: no pain, no swelling, no tenderness, negative Homans' sign noted on exam, no appreciated bluish discoloration, no erythema, no increased warmth. 09:23 Neuro: Orientation: unable to test, Mentation: slow to respond, confused, Memory: unable to test, Motor: is normal, Gait: not tested. seizure activity, is not displayed by the patient. Vital Signs: 08:32 BP 146 / 82; Pulse 79; Resp 18; Temp 97.2; Pulse Ox 100% ; sv 09:23 BP 149 / 82; Pulse 77; Resp 20; Pulse Ox 99% ; sv 10:27 BP 150 / 70; Pulse 71; Resp 14; Pulse Ox 100% ; sv 11:08 BP 144 / 75; Pulse 70; Resp 17; Pulse Ox 99% on R/A; mh5 11:57 BP 163 / 80; Pulse 70; Resp 15; Pulse Ox 99% on R/A; mh5 [place] Coma Score: 09:23 Eye Response: spontaneous(4). Verbal Response: oriented(5). Motor Response: obeys [facility] commands(6). Total: 15. MDM: 08:[address] [facility] 09:26 Data reviewed: vital signs, nurses notes, lab test result(s), EKG, radiologic studies, [facility] CT scan, plain films. 04/07 08:59 Order name: Basic Metabolic Panel; Complete Time: 12:19 [facility] 04/07 08:59 Order name: CBC with Diff; Complete Time: 12:19 [facility] 04/07 08:59 Order name: Ckmb; Complete Time: 12:19 [facility] 04/07 08:59 Order name: CPK; Complete Time: 12:19 [facility] 04/07 08:59 Order name: LFT's; Complete Time: 12:19 [facility] 04/07 08:59 Order name: Magnesium; Complete Time: 12:19 [facility] 04/07 08:59 Order name: NT PRO-BNP; Complete Time: 12:19 [facility] 04/07 08:59 Order name: PT-INR; Complete Time: 12:19 [facility] 04/07 08:59 Order name: Ptt, Activated; Complete Time: 12:19 [facility] 04/07 08:59 Order name: Troponin (emerg Dept Use Only); Complete Time: 12:19 [facility] 04/07 08:59 Order name: Urine Culture [facility] 04/07 09:26 Order name: TSH; Complete Time: 12:19 abi 04/07 09:50 Order name: Urine Dipstick--Ancillary (enter results); Complete Time: 12:19 bd 04/07 08:45 Order name: EKG; Complete Time: 08:45 sv 04/07 08:45 Order name: EKG - Nurse/Tech; Complete Time: 08:45 sv 04/07 08:59 Order name: CT Head C Spine; Complete Time: 12:19 [facility] 04/07 08:59 Order name: XRAY Chest (1 view); Complete Time: 12:19 [facility] 04/07 08:59 Order name: Cardiac monitoring; Complete Time: 09:07 [facility] 04/07 08:59 Order name: Labs collected and sent; Complete Time: 09:22 [facility] 04/07 08:59 Order name: O2 Per Protocol; Complete Time: 09:07 [facility] 04/07 08:59 Order name: O2 Sat Monitoring; Complete Time: 09:07 [facility] 04/07 08:59 Order name: Urine Dipstick-Ancillary (obtain specimen); Complete Time: 09:52 [facility] 04/07 09:26 Order name: Ice pack; Complete Time: 09:59 [facility] Administered Medications: 11:29 CANCELLED (not needed): Ativan 0.5 mg IVP once sv 11:29 CANCELLED (not needed): Ativan 0.5 mg IVP once sv Disposition: 04/07/18 12:21 Discharged to Home. Impression: Fall due to bumping against object, Superficial injury of head - frontal hematoma, Unspecified kidney failure, Elevated white blood cell count. - Condition is Fair. - Discharge Instructions: Head Injury, Adult, Fall Prevention in the Home, Fall Prevention in the Home, Tusm-cn-Kmar, Weakness, Ryoe-ob-Auei, Chronic Kidney Disease, Adult, Kfme-km-Eukg, Dementia, Izah-yy-Ugdw. - Medication Reconciliation Form, Thank You Letter, Antibiotic Education, Prescription Opioid Use form. - Follow up: Private Physician; When: 2 - 3 days; Reason: Recheck today's complaints, Continuance of care, Re-evaluation by your physician. - Problem is new. - Symptoms have improved. Signatures: Dispatcher [employer] EDMS Enedelia Rosenberg RN RN sv Anderson, Corey, MD MD cha Corrections: (The following items were deleted from the chart) 09:18 08:45 Head Brain Wo Cont+CT.RAD.BRZ ordered. EDME EDMS 09:22 08:59 IV Saline Lock ordered. abi sv 11:29 08:59 Ativan 0.5 mg IVP once ordered. abi sv 11:29 08:59 Ativan 0.5 mg IVP once ordered. abi sv 11:29 11:29 Ativan 0.5 mg IVP once ordered. sv sv 11:29 11:29 Ativan 0.5 mg IVP once ordered. sv sv 12:23 12:21 04/07/2018 12:21 Discharged to Home. Impression: Fall due to bumping against abi object; Superficial injury of head - frontal hematoma. Condition is Fair. Forms are Medication Reconciliation Form, Thank You Letter, Antibiotic Education, Prescription Opioid Use. Follow up: Private Physician; When: 2 - 3 days; Reason: Recheck today's complaints, Continuance of care, Re-evaluation by your physician. Problem is new. Symptoms have improved. [facility] 12:23 12:23 04/07/2018 12:21 Discharged to Home. Impression: Fall due to bumping against abi object; Superficial injury of head - frontal hematoma; Unspecified kidney failure. Condition is Fair. Discharge Instructions: Head Injury, Adult, Weakness, Gvvd-ed-Jlfk, Dementia, Jmua-tz-Taxb. Forms are Medication Reconciliation Form, Thank You Letter, Antibiotic Education, Prescription Opioid Use. Follow up: Private Physician; When: 2 - 3 days; Reason: Recheck today's complaints, Continuance of care, Re-evaluation by your physician. Problem is new. Symptoms have improved. [facility] 14:18 12:23 04/07/2018 12:21 Discharged to Home. Impression: Fall due to bumping against sv object; Superficial injury of head - frontal hematoma; Unspecified kidney failure; Elevated white blood cell count. Condition is Fair. Discharge Instructions: Head Injury, Adult, Weakness, Zkic-kb-Qqpd, Dementia, Scdf-je-Oqbk. Forms are Medication Reconciliation Form, Thank You Letter, Antibiotic Education, Prescription Opioid Use. Follow up: Private Physician; When: 2 - 3 days; Reason: Recheck today's complaints, Continuance of care, Re-evaluation by your physician. Problem is new. Symptoms have improved. abi
--- NOTE | 2018-04-07 14:02 | EKG ---
Test Date: 2018-04-07 Test Time: 08:40:11 Agricultural Systems Specialist: ADAM MEASUREMENT RESULTS: Intervals: Rate: 74 ME: 166 QRSD: 118 QT: 434 QTc: 481 [place]: P: 63 ME: 166 QRS: -54 T: 88 INTERPRETIVE STATEMENTS: Normal sinus rhythm Left axis deviation Anteroseptal infarct, age undetermined Abnormal ECG Compared to ECG 12/09/2017 10:56:13 Atrial premature complex(es) no longer present Intraventricular conduction delay no longer present Myocardial infarct finding still present Electronically Signed On 04-07-18 14:01:46 CDT by Adalberto Parish
[2018-04-07 14:30] VITALS: TEMP 97.2
[2018-04-07 14:33] VITALS: O2SAT 99
[2018-04-07 14:35] VITALS: BP 163/80
== END 2018-04-07 14:18 | disposition home or self-care (01) ==
LOC: ER 08:31
DX: S00.83XA Contusion of other part of head, initial encounter (principal); D72.829 Elevated white blood cell count, unspecified; N19 Unspecified kidney failure; W18.30XA Fall on same level, unspecified, initial encounter; Y93.9 Activity, unspecified; Y92.129 Unspecified place in nursing home as the place of occurrence of the external cause; Z79.01 Long term (current) use of anticoagulants; E03.9 Hypothyroidism, unspecified; E78.00 Pure hypercholesterolemia, unspecified; E78.5 Hyperlipidemia, unspecified; I12.9 Hypertensive chronic kidney disease with stage 1 through stage 4 chronic kidney disease, or unspecified chronic kidney disease; N18.9 Chronic kidney disease, unspecified; G30.9 Alzheimer's disease, unspecified; F02.80 Dementia in other diseases classified elsewhere, unspecified severity, without behavioral disturbance, psychotic disturbance, mood disturbance, and anxiety
CPT/HCPCS: 36415; 51702; 70450; 71045; 72125; 80048; 80076; 81003; 82550; 82553; 83735; 83880; 84443; 84484; 85025; 85610; 85730; 87086; 87088; 93005; 99285

== ENCOUNTER 2018-05-02 13:55 | Inpatient (IN) | payer OTHER ==
[2018-05-02 14:51] LABS: Absolute Lymphocytes (CBC) 2.9 K/uL (0.7-4.9); Absolute Monocytes 1.3 K/uL (0.1-1.3); Absolute Neutrophil 8.6 K/uL (1.8-8.0); Basophils % 0.8 % (0-1.3); Eosinophils % 1.4 % (0-4.4); Hematocrit 36.8 % (36.0-45.0); Lymphocytes % 22.2 % (15.3-44.8); MCH 26.1 pg (27.0-35.0); MCV 79.8 fL (80-100); Monocytes % 9.8 % (3.3-12.3); RBC Red Blood Cell Count 4.61 M/uL (3.86-4.86)
[2018-05-02 14:54] LABS: Protime INR 1.02
[2018-05-02 15:08] LABS: Albumin 2.6 g/dL (3.4-5.0); Bilirubin Direct 0.2 mg/dL (0-0.2); Bilirubin Total 0.4 mg/dL (0.2-1.0); Protein, Total 6.3 g/dL (6.4-8.2)
--- NOTE | 2018-05-02 15:22 | RAD REPORT ---
EXAM DESCRIPTION: RAD - Chest Single View - 05/02/2018 3:16 pm CLINICAL HISTORY: AMS Chest pain. COMPARISON: Chest Single View dated 04/07/2018; Chest Single View dated 12/09/2017; CHEST SINGLE VIEW d ated 04/21/2012; CHEST SINGLE VIEW dated 02/17/2010 FINDINGS: Portable technique limits examination quality. The lungs are grossly clear. Chronic elevation right hemidiaphragm noted. The heart is mildly enlarge d in size. No displaced fractures. IMPRESSION: No acute intrathoracic process suspected.
[2018-05-02] MEDS ORDERED: NA CHLORIDE 0.9% 500 ML ONE (15:53)
[2018-05-02] MEDS ORDERED: CEFTRIAXONE/SWI 1gm 1 GM/10 ML SYR ONE ×2 (15:53→16:37)
[2018-05-02 15:59] LABS: Urine Amorphous Sediment 1+ /HPF (NONE SEEN); Urine Bacteria >50 /HPF (<20); Urine Culture Reflex Order REFLEXED; Urine Mucus 3+ /HPF (NONE SEEN)
[2018-05-02 16:00] LABS: Urine Blood 2+ (NEG); Urine Glucose NEGATIVE (NEG); Urine Protein 3+ (NEG); Urine pH 8.5 (5.0-7.0)
--- NOTE | 2018-05-02 18:12 | EDPHYS ---
Physician Documentation [facility] Name: Jackie Richards Age: 88 yrs Sex: Female : 1930 Arrival Date: 05/02/2018 Time: 14:01 Bed 18 Private MD: ED Physician Elieser Almanza HPI: 05/02 17:36 This 88 yrs old Female presents to ER via EMS with complaints of Abnormal Lab il Results. 17:36 The patient presents with decreased mental status, per NH, decreased mentation from il baseline. also advised pt has an "abnormal lab" although did not arrive with information regarding what labs is abnormal. pt non-verbal at baseline and cannot help with history. NH advised pt has an ulcerated wound on the R hip. Onset: The symptoms/episode began/occurred 2 day(s) ago. Possible causes: per NH, maybe due to the R hip ulcer. Associated signs and symptoms: Pertinent negatives: agitation, diarrhea, seizure, vomiting. Current symptoms: In the emergency department the patient's symptoms are unchanged from the initial presentation. Patient's baseline: Neuro: alert but confused, Motor: moves all extremities.. 17:55 The patient has not experienced similar symptoms in the past. The patient has not wa recently seen a physician. Historical: - Allergies: 14:05 PENICILLINS; la1 - Home Meds: 14:09 amlodipine 2.5 mg tab 2 tabs once daily [Active]; Aricept 10 mg Oral tab 1 tab once la1 daily [Active]; aspirin 81 mg Oral chew 1 tab once daily [Active]; atorvastatin 40 mg Oral tab 1 tab once daily [Active]; calcitriol 0.25 mcg Oral cap 1 cap Every other day [Active]; levothyroxine 25 mcg tab 1 tab Every other day [Active]; memantine 5 mg Oral tab 1 tabs daily [Active]; Plavix 75 mg Oral tab 1 tab once daily [Active]; ascorbic acid (vitamin C) 500 mg tab twice a day [Active]; zinc sulfate 220 mg Oral tab daily [Active]; Zyrtec 10 mg Oral tab 1 tab once daily [Active]; doxycycline hyclate 100 mg Oral cap 1 cap 2 times per day [Active]; - PMHx: 14:05 Alzheimers; AMS; Cerebral infarction; CKD; cognitive communication deficit; Dementia; la1 DYSPHAGIA; High Cholesterol; Hyperlipidemia; hyperparathyroidism; Hypertension; Hypothyroidism; UTI; 14:10 pressure ulcer right hip (unstageable); la1 - Immunization history:: Adult Immunizations up to date. - Social history:: Smoking status: unknown. - Ebola Screening: : No symptoms or risks identified at this time. ROS: 17:55 Neck: Negative for injury, pain, and swelling, Back: Negative for injury and pain. wa 17:55 Unable to obtain ROS due to altered mental status, baseline dementia. Exam: 17:56 Head/Face: Normocephalic, atraumatic. Eyes: Pupils equal round and reactive to light, wa extra-ocular motions intact. Lids and lashes normal. Conjunctiva and sclera are non-icteric and not injected. Cornea within normal limits. Periorbital areas with no swelling, redness, or edema. ENT: Nares patent. No nasal discharge, no septal abnormalities noted. Tympanic membranes are normal and external auditory canals are clear. Oropharynx with no redness, swelling, or masses, exudates, or evidence of obstruction, uvula midline. Mucous membranes moist. Neck: Trachea midline, no thyromegaly or masses palpated, and no cervical lymphadenopathy. Supple, full range of motion without nuchal rigidity, or vertebral point tenderness. No Meningismus. Cardiovascular: Regular rate and rhythm with a normal S1 and S2. No gallops, murmurs, or rubs. Normal PMI, no JVD. No pulse deficits. Respiratory: Lungs have equal breath sounds bilaterally, clear to auscultation and percussion. No rales, rhonchi or wheezes noted. No increased work of breathing, no retractions or nasal flaring. Abdomen/GI: Soft, non-tender, with normal bowel sounds. No distension or tympany. No guarding or rebound. No evidence of tenderness throughout. Back: No spinal tenderness. No costovertebral tenderness. Full range of motion. MS/ Extremity: Pulses equal, no cyanosis. Neurovascular intact. Full, normal range of motion. 17:56 Skin: lesion(s), noted, and can be described as stage 3 R hip ulcer. 5 cm by 4 cm. 17:56 Neuro: non-verbal. eyes closed. does not follow commands. moves all extremities symmetrically however. Vital Signs: 14:05 BP 122 / 69; Pulse 72; Resp 15; Temp 98.3(O); Pulse Ox 98% on R/A; la1 15:34 BP 109 / 59; Pulse 83; Resp 16; Pulse Ox 97% on R/A; la1 17:55 BP 124 / 69; Pulse 86; Resp 16; Pulse Ox 98% on R/A; mh5 20:22 BP 122 / 62; Pulse 83; Resp 14; Temp 98.5(A); Pulse Ox 98% on R/A; Pain 0/10; sr5 MDM: 14:06 Patient medically screened. il 17:59 Differential Diagnosis: electrolyte abnormality, pneumonia, sepsis, UTI, r/o infection. wa wound is clean. unlikely source of AMS> will r/o PNA vs UTI. Data reviewed: vital signs, nurses notes, lab test result(s). 18:05 Test interpretation: by ED physician or midlevel provider: labs noted for UTI. renal wa insufficiency. 18:10 Test interpretation: by ED physician or midlevel provider: CXR: no acute process. wa Response to treatment: the patient's symptoms have mildly improved after treatment. Physician consultation: Hugo Bender DO. Admission orders: after a detailed discussion of the patient's condition and case, the admit orders are written by me. 05/02 14:31 Order name: Basic Metabolic Panel; Complete Time: 15:41 05/02 14:31 Order name: Blood Culture Adult (2) il 05/02 14:31 Order name: CBC with Diff; Complete Time: 15:41 il 05/02 14:31 Order name: CPK; Complete Time: 15:41 05/02 14:31 Order name: Lactate; Complete Time: 17:34 05/02 14:31 Order name: LFT's; Complete Time: 15:41 05/02 14:31 Order name: Lipase; Complete Time: 17:44 05/02 14:31 Order name: Protime (+inr); Complete Time: 17:44 05/02 14:31 Order name: Troponin (emerg Dept Use Only); Complete Time: 17:44 05/02 14:31 Order name: Urine Microscopic Only; Complete Time: 17:34 05/02 14:56 Order name: Urine Dipstick--Ancillary (enter results); Complete Time: 17:34 mb4 05/02 16:00 Order name: Urine Culture EDMS 05/02 18:21 Order name: Basic Metabolic Panel EDMS 05/02 18:21 Order name: Basic Metabolic Panel EDMS 05/02 14:31 Order name: Chest Single View XRAY; Complete Time: 15:41 05/02 18:21 Order name: Basic Metabolic Panel EDMS 05/02 18:21 Order name: Basic Metabolic Panel EDMS 05/02 18:21 Order name: Magnesium EDMS 05/02 18:22 Order name: Urinalysis EDMS 05/02 18:22 Order name: CBC with Automated Diff EDMS 05/02 18:22 Order name: CBC with Automated Diff EDMS 05/02 18:22 Order name: CBC with Automated Diff EDMS 05/02 18:22 Order name: CBC with Automated Diff EDMS 05/02 18:22 Order name: Magnesium EDMS 05/02 18:22 Order name: Magnesium EDMS 05/02 18:22 Order name: Magnesium EDMS 05/02 18:22 Order name: T4 Free EDMS 05/02 18:22 Order name: T4 Free EDMS 05/02 18:22 Order name: Thyroid Stimulating Hormone EDMS 05/02 18:22 Order name: Thyroid Stimulating Hormone EDMS 05/02 14:31 Order name: Accucheck; Complete Time: 14:32 05/02 14:31 Order name: Cardiac monitoring; Complete Time: 14:32 05/02 14:31 Order name: EKG - Nurse/Tech; Complete Time: 15:29 05/02 14:31 Order name: IV Saline Lock - Large Bore; Complete Time: 14:32 05/02 14:31 Order name: Labs collected and sent; Complete Time: 14:32 05/02 14:31 Order name: O2 Per Protocol; Complete Time: 14:32 05/02 14:31 Order name: O2 Sat Monitoring; Complete Time: 14:32 05/02 14:31 Order name: Urine Dipstick-Ancillary (obtain specimen); Complete Time: 14:55 05/02 17:30 Order name: EKG Electrocardiogram EDKY 05/02 18:22 Order name: CONS Pharmacy Consult EDMS 05/02 18:22 Order name: [facility]S [facility] Cons EDMS 05/02 18:22 Order name: Social Service Consult EDMS 05/02 18:22 Order name: Renal EDMS Administered Medications: 15:57 Drug: NS 0.9% 500 ml Route: IV; Rate: bolus; Site: left antecubital; [facility] 16:30 Follow up: IV Status: Completed infusion [facility] 15:57 Drug: Rocephin - (cefTRIAXone) 2 grams Route: IVPB; Infused Over: 30 mins; Site: left la1 antecubital; 16:30 Follow up: IV Status: Completed infusion [facility] Disposition: 05/02/18 18:11 Hospitalization ordered by Hugo Bender for Observation. Preliminary diagnosis are Acute UTI, AMS. - Bed requested for Telemetry/MedSurg (observation). - Status is Observation. sr5 - Condition is Stable. - Problem is new. - Symptoms have improved. UTI on Admission? Yes Signatures: Dispatcher [employer] EDMS Devin Mesa RN RN la1 Kush Savage RN RN sr5 Elieser Almanza MD MD wa Baxter, Mackenzie mb4 Corrections: (The following items were deleted from the chart) 14:11 14:05 PMHx: pressure ulcer (stage 2 right hip); [place] [id number] 18:50 18:11 Hospitalization Ordered by Hugo Bender DO for Observation. Preliminary mb4 diagnosis is Acute UTI; AMS. Bed requested for Telemetry/MedSurg (observation). Status is Observation. Condition is Stable. Problem is new. Symptoms have improved. UTI on Admission? Yes. il 20:28 18:50 05/02/2018 18:11 Hospitalization Ordered by Hugo Bender DO for Observation. sr5 Preliminary diagnosis is Acute UTI; AMS. Bed requested for Telemetry/MedSurg (observation). Status is Observation. Condition is Stable. Problem is new. Symptoms have improved. UTI on Admission? Yes. mb4
--- NOTE | 2018-05-02 18:12 | ER ---
Nurse's Notes [facility] Name: Jackie Richards Age: 88 yrs Sex: Female : 1930 Arrival Date: 05/02/2018 Time: 14:01 Bed 18 Private MD: Diagnosis: Acute UTI;AMS Presentation: 05/02 14:02 Presenting complaint: EMS states: She had some blood work done that said she may have la1 the beginning of an infection she is acting a little different, not objective neuro changes, pt is non-verbal at baseline. Wound dressing noted to right lateral hip. Transition of care: patient was not received from another setting of care. Onset of symptoms was May 02, 2018. Risk Assessment: Do you want to hurt yourself or someone else? Patient reports no desire to harm self or others. Initial Sepsis Screen: Does the patient meet any 2 criteria? Altered Mental Status. Does the patient have a suspected source of infection? Yes: Skin breakdown/wound. Care prior to arrival: None. 14:02 Method Of Arrival: EMS: [facility] la1 14:02 Acuity: LEON 3 la1 Historical: - Allergies: 14:05 PENICILLINS; la1 - Home Meds: 14:09 amlodipine 2.5 mg tab 2 tabs once daily [Active]; Aricept 10 mg Oral tab 1 tab once la1 daily [Active]; aspirin 81 mg Oral chew 1 tab once daily [Active]; atorvastatin 40 mg Oral tab 1 tab once daily [Active]; calcitriol 0.25 mcg Oral cap 1 cap Every other day [Active]; levothyroxine 25 mcg tab 1 tab Every other day [Active]; memantine 5 mg Oral tab 1 tabs daily [Active]; Plavix 75 mg Oral tab 1 tab once daily [Active]; ascorbic acid (vitamin C) 500 mg tab twice a day [Active]; zinc sulfate 220 mg Oral tab daily [Active]; Zyrtec 10 mg Oral tab 1 tab once daily [Active]; doxycycline hyclate 100 mg Oral cap 1 cap 2 times per day [Active]; - PMHx: 14:05 Alzheimers; AMS; Cerebral infarction; CKD; cognitive communication deficit; Dementia; la1 DYSPHAGIA; High Cholesterol; Hyperlipidemia; hyperparathyroidism; Hypertension; Hypothyroidism; UTI; 14:10 pressure ulcer right hip (unstageable); la1 - Immunization history:: Adult Immunizations up to date. - Social history:: Smoking status: unknown. - Ebola Screening: : No symptoms or risks identified at this time. Screenin:13 Abuse screen: Denies threats or abuse. Nutritional screening: No deficits noted. la1 Tuberculosis screening: No symptoms or risk factors identified. Fall Risk No fall in past 12 months (0 pts). Secondary diagnosis (15 points) No IV (0 pts). Ambulatory Aid- None/Bed Rest/Nurse Assist (0 pts). Gait- Mental Status- Overestimates/Forgets Limitations (15 pts.). Total Mclaughlin Fall Scale indicates High Risk Score (45 or more points). Side Rails Up X 2 Placed Close to Nursing Station Family Present and informed to notify staff if the need to leave the bedside. Assessment: 14:11 Reassessment: Wound dressing to right hip, pt presents with socks on hands. Pt is la1 non-verbal. General: Appears ill, Behavior is calm. Pain: Unable to use pain scale. Does not appear to understand pain scale. Neuro: Level of Consciousness is awake, Oriented to none Pupils are PERRLA. Cardiovascular: Heart tones S1 S2 present Capillary refill < 3 seconds. Respiratory: Airway is patent Respiratory effort is even, unlabored, Respiratory pattern is regular, symmetrical, Breath sounds are clear bilaterally. GI: Abdomen is round non-distended, Bowel sounds present X 4 quads. : No signs and/or symptoms were reported regarding the genitourinary system. Derm: Wound noted right hip. 15:34 Derm: Decubitus located on right hip(s) approximately 7.6 cm to 20 cm is stage III is la1 draining small amount. 15:35 Derm: Decubitus located on right buttocks, nickel/quarter sized, stage 2. la1 19:00 Reassessment: Assumed care of pt. sr5 20:23 Reassessment: Pt lying in bed on left side, assessed, nonverbal, no grimacing, not sr5 following commands, equal unlabored resp, room air, skin warm/dry/nc, sr on monitor, IV site asympt/SL. Brief cleaned, loose stool, wound dressings remain dry/intact. Family updated on POC. Report called to 4th floor receiving RN. Vital Signs: 14:05 BP 122 / 69; Pulse 72; Resp 15; Temp 98.3(O); Pulse Ox 98% on R/A; la1 15:34 BP 109 / 59; Pulse 83; Resp 16; Pulse Ox 97% on R/A; la1 17:55 BP 124 / 69; Pulse 86; Resp 16; Pulse Ox 98% on R/A; 5 20:22 BP 122 / 62; Pulse 83; Resp 14; Temp 98.5(A); Pulse Ox 98% on R/A; Pain 0/10; sr5 Vitals: 20:23 Cardiac Rhythm Assessment Sinus rhythm. 5 ED Course: 14:01 Patient arrived in ED. la1 14:03 Triage completed. la1 14:06 Elieser Almanza MD is Attending Physician. wa 14:06 Arm band placed on left wrist. la1 14:11 Devin Mesa, RN is Primary Nurse. la1 14:55 Inserted saline lock: 22 gauge in left antecubital area, using aseptic technique. ss 14:55 Straight cath inserted, using sterile technique, 16 Fr. Specimen obtained. Returned ss cloudy urine. Patient tolerated well. 14:55 Urine collected: straight cath specimen, cloudy. 5 14:56 Urine Dipstick--Ancillary (enter results) Sent. 5 14:56 Urine Microscopic Only Sent. [facility] 15:15 EKG done, by critical care technician. reviewed by Elieser Almanza MD. 3 15:16 Chest Single View XRAY In Process Unspecified. EDMS 15:36 Placed in gown. Bed in low position. Call light in reach. Side rails up X2. Adult w/ la1 patient. Pulse ox on. NIBP on. 18:11 Hugo Bender DO is Hospitalizing Provider. wa 20:23 No provider procedures requiring assistance completed. Patient admitted, IV remains in sr5 place. Administered Medications: 15:57 Drug: NS 0.9% 500 ml Route: IV; Rate: bolus; Site: left antecubital; la1 16:30 Follow up: IV Status: Completed infusion [facility] 15:57 Drug: Rocephin - (cefTRIAXone) 2 grams Route: IVPB; Infused Over: 30 mins; Site: left la1 antecubital; 16:30 Follow up: IV Status: Completed infusion [facility] Outcome: 18:11 Decision to Hospitalize by Provider. wa 20:23 Admitted to Tele sr5 20:23 Condition: unchanged 20:23 Instructed on the need for admit. 20:28 Patient left the ED. sr5 Signatures: Dispatcher [employer] Anum Rubalcava RN RN Devin Mesa RN RN la1 Kush Savage RN RN sr5 Elizabeth Negron 5 Elieser Almanza MD MD wa Montes, Shakira 3 Corrections: (The following items were deleted from the chart) 14:11 14:05 PMHx: pressure ulcer (stage 2 right hip); la1 la1 20:17 20:16 Reassessment: Assumed care of pt sr5 sr5
[2018-05-02] MEDS ORDERED: SODIUM CHLORIDE 0.9% 10ML INJ IV PRN (18:15)
[2018-05-02] MEDS ORDERED: ACETAMINOPHEN 500 MG TAB PO PRN (18:15)
[2018-05-02] MEDS ORDERED: HYDRALAZINE HCL 20 MG/ML VIAL IV PRN (18:15)
[2018-05-02] MEDS ORDERED: ONDANSETRON 4 MG/2 ML VIAL IV PRN (18:15)
[2018-05-02] MEDS ORDERED: ACETAMINOPHEN 650MG/RECT SUPP PR PRN (18:15)
--- NOTE | 2018-05-02 18:43 | P.HP ---
Certification for Inpatient Patient admitted to: Inpatient With expected LOS: >2 Midnights Patient will require the following post-hospital care: Hospice Practitioner: I am a practitioner with admitting privileges, knowledge of patient current condition, hospital course, and medical plan of care. Services: Services provided to patient in accordance with Admission requirements found in Title 42 Section 412.3 of the Code of Federal Regulations Patient History Date of Service: 05/02/18 Primary Care Provider: [facility]-Dr. Stewart Reason for admission: AMS History of Present Illness: 88-year-old female presented emergency room for altered mental status and abnormal lab. Patient with prior history of Alzheimer's dementia, chronic renal disease, previous CVA with aphasia and hypertension. The patient has been having poor oral intake. This is been ongoing. She has had altered mental status changes including increased sleep. Daughter present at bedside reports that she has been acting differently. Patient has been at the correction since February. Patient has a right hip ulcer that is being treated by infectious disease. Daughter reports that she has been declining in health. Weight has decreased is well. Daughter reports that the patient has had a history of UTIs in the past. She has been on medications orally for UTI. In the ER patient evaluated. White count 13.0. Lactic acid within normal range. BUN of 64, creatinine 2.2 with a GFR 21. Urinalysis was significant for bacteria. Chest x-ray unremarkable. Patient was admitted for further treatment of UTI and altered mental status. When I saw the patient ER, patient with severe dementia. She did not appear in any distress. Daughter at bedside. Allergies Penicillins Allergy (Intermediate, Verified 04/21/12 09:07) Rash Home medications list reviewed: Yes Home Medications: Levothyroxine [Synthroid*] 0.025 mg PO Q48HR 04/21/12 Amlodipine [Norvasc] 2.5 mg PO BID 12/09/17 Calcitriol 25 mcg PO DIRECTED 12/09/17 Donepezil HCl 10 mg PO BEDTIME 12/09/17 Memantine HCl 5 mg PO BEDTIME 12/09/17 Atorvastatin Calcium 40 mg PO BEDTIME #30 tablet 12/13/17 Clopidogrel Bisulfate [Plavix] 75 mg PO DAILY #30 tablet 12/13/17 - Past Medical/Surgical History Diabetic: No -: Alzheimer's dementia, severe -: HTN -: Chronic kidney disease stage 4 -: Hypothyroidism -: Depression -: History of pelvic fracture -: Right hip pressure ulcer -: Failure to thrive -: History CVA with residual aphasia -: Bunion surgery Psychosocial/ Personal History: Patient at correction. Daughter reports advance directives include do not resuscitate. - Family History Family History: Reviewed- Non-Contributory - Social History Smoking Status: Never smoker Alcohol use: No CD- Drugs: No Caffeine use: Yes Place of Residence: [facility] Review of Systems General: Weakness, Malaise, As per HPI Eyes: Unremarkable ENT: Unremarkable Respiratory: Unremarkable Cardiovascular: Unremarkable Gastrointestinal: Unremarkable Genitourinary: As per HPI Musculoskeletal: Unremarkable Integumentary: As per HPI Neurological: As per HPI Lymphatics: Unremarkable Physical Examination - Physical Exam General: Alert, Cachectic, Demented (Severe dementia) HEENT: Atraumatic, Normocephalic, Other (Dry mucous membranes) Neck: Supple, No Thyromegaly Respiratory: Clear to auscultation bilaterally, Normal air movement Cardiovascular: Normal pulses, Regular rate/rhythm Gastrointestinal: Normal bowel sounds, Soft and benign, Non-distended, No tenderness, No masses, No rebound, No guarding Musculoskeletal: No erythema, No tenderness, No warmth Integumentary: Other (Ulcer noted to the right hip) Neurological: Normal strength at 5/5 x4 extr, Other (Patient in position.) , Dementia (Severe dementia) - Studies Laboratory Data (last 24 hrs) 05/02/18 14:30: PT 12.0, INR 1.02 05/02/18 14:30: WBC 13.0 H D, Hgb 12.0, Hct 36.8 D, Plt Count 349 05/02/18 14:30: Sodium 138, Potassium 4.0, BUN 64 H, Creatinine 2.20 H, Glucose 99, Total Bilirubin 0.4, AST 26, ALT 25, Alkaline Phosphatase 99, Lipase 183 Assessment and Plan - Problems (Diagnosis) (1) Encephalopathy Current Visit: Yes Status: Acute Plan: Encephalopathy likely related to recurrent UTI. Will start IV antibiotic therapy. Blood and urine cultures obtained. Case discussed in detail with daughter. Patient is DNR. Daughter desires hospice at discharge. Care discussed in detail about the possibility of patient requiring IV antibiotic therapy for UTI verses oral medication. Daughter will think about this in detail. Discussion about hospice in detail address. Daughter feels comfortable about the possibility of hospice as the patient has been declining in health. Will have social media marketing manager help arrange for this at discharge. Will start IV fluids due to hydration status. (2) UTI (urinary tract infection) Current Visit: Yes Status: Acute Plan: Likely recurrent. Await urine culture results. Qualifiers: Urinary tract infection type: site unspecified Hematuria presence: without hematuria Qualified Code(s): N39.0 - Urinary tract infection, site not specified (3) Pressure ulcer of right hip Current Visit: Yes Status: Chronic Plan: Patient has chronic ulcer to the right hip. Will need to continue with previous wound care. (4) Alzheimer's dementia Current Visit: Yes Status: Chronic Plan: Patient was severe Alzheimer's dementia. Will pursue hospice at discharge. Qualifiers: Alzheimer's disease onset: unspecified onset Dementia behavioral disturbance: without behavioral disturbance Qualified Code(s): G30.9 - Alzheimer's disease, unspecified; F02.80 - Dementia in other diseases classified elsewhere without behavioral disturbance (5) History of CVA with residual deficit Current Visit: Yes Status: Chronic Plan: Patient with residual aphasia. Continue as above. (6) Chronic renal disease Current Visit: Yes Status: Acute Plan: Acute on chronic renal disease. Will monitor closely. Continue IV fluids. Qualifiers: Chronic kidney disease stage: stage 4 (severe) Qualified Code(s): N18.4 - Chronic kidney disease, stage 4 (severe) (7) Hypertension Current Visit: Yes Status: Chronic Plan: Will provide medication. Will need to obtain and review home medication. Qualifiers: Hypertension type: essential hypertension Qualified Code(s): I10 - Essential (primary) hypertension (8) Hypothyroidism Current Visit: Yes Status: Chronic Plan: Will need to restart home medication. Discharge Plan: [facility] Plan to discharge in: 72 Hours - Advance Directives Does patient have a Living Will: No Does patient have a Durable POA for Healthcare: Yes - Code Status/Comfort Care Code Status Assessed: Yes (Patient is do not resuscitate. Daughter wants hospice at discharge.) Time Spent Managing Pts Care (In Minutes): 55
[2018-05-02] MEDS: PANTOPRAZOLE 40 MG INJ IVP SCH (22:39)
[2018-05-02] MEDS: ENOXAPARIN 30 MG/0.3 ML SQ SCH (22:40)
[2018-05-02] MEDS: Levofloxacin 250mg IV 250 MG/50 ML BAG IV SCH (22:40)
[2018-05-02] MEDS: NA CHLORIDE 0.9% 1,000 ML IV SCH (22:40)
[2018-05-03 00:25] VITALS: BMI 19.7
[2018-05-03 06:09] LABS: Absolute Lymphocytes (CBC) 2.3 K/uL (0.7-4.9); Absolute Monocytes 1.1 K/uL (0.1-1.3); Absolute Neutrophil 5.9 K/uL (1.8-8.0); Basophils % 0.9 % (0-1.3); Eosinophils % 3.2 % (0-4.4); Hematocrit 28.9 % (36.0-45.0); MCH 26.2 pg (27.0-35.0); MCV 79.2 fL (80-100); MPV 7.7 fL (7.6-11.3); Monocytes % 11.2 % (3.3-12.3); RBC Red Blood Cell Count 3.65 M/uL (3.86-4.86)
[2018-05-03 06:50] LABS: Magnesium 2.2 mg/dL (1.8-2.4); Potassium 3.9 mmol/L (3.5-5.1); Thyroid Stimulating Hormone 1.11 uIU/mL (0.36-3.74)
[2018-05-03] MEDS: NA CHLORIDE 0.9% 1,000 ML IV SCH (08:20)
--- NOTE | 2018-05-03 08:33 | EKG ---
Test Date: 2018-05-02 Test Time: 15:07:10 Auto Radiator Specialist: SUSANA MEASUREMENT RESULTS: Intervals: Rate: 85 IA: 146 QRSD: 114 QT: 392 QTc: 466 [place]: P: 38 IA: 146 QRS: -52 T: 103 INTERPRETIVE STATEMENTS: Normal sinus rhythm Left axis deviation Left ventricular hypertrophy with QRS widening and repolarization abnormality Anteroseptal infarct, age undetermined Abnormal ECG Compared to ECG 04/07/2018 08:40:11 no significant change from previous ECG Electronically Signed On 05-03-18 08:33:41 CDT by Adalberto Parish
--- NOTE | 2018-05-03 09:05 | P.PN ---
Subjective Date of Service: 05/03/18 Primary Care Provider: [facility]-Dr. Stewart Chief Complaint: AMS Subjective: Demented Physical Examination - Vital Signs Temperature: 97.1 F Blood Pressure: 110/56 Pulse: 79 Respirations: 17 Pulse Ox (%): 98 - Physical Exam General: Alert, In no apparent distress, Demented (Severe dementia) HEENT: Atraumatic Neck: Supple Respiratory: Clear to auscultation bilaterally, Normal air movement Cardiovascular: Normal pulses, Regular rate/rhythm Gastrointestinal: Normal bowel sounds, Soft and benign, Non-distended, No tenderness, No masses, No rebound, No guarding Musculoskeletal: Other (Patient in position) Neurological: Dementia (Severe) - Studies Laboratory Data (last 24 hrs) 05/02/18 14:30: PT 12.0, INR 1.02 05/02/18 14:30: WBC 13.0 H D, Hgb 12.0, Hct 36.8 D, Plt Count 349 05/02/18 14:30: Sodium 138, Potassium 4.0, BUN 64 H, Creatinine 2.20 H, Glucose 99, Total Bilirubin 0.4, AST 26, ALT 25, Alkaline Phosphatase 99, Lipase 183 Microbiology Data (last 24 hrs): 05/02/18 14:30 Blood - Blood Anaerobic Blood Culture - Final 05/02/18 14:30 Blood - Blood Anaerobic Blood Culture - Final Medications List Reviewed: Yes Assessment & Plan - Problems (Diagnosis) (1) Encephalopathy Current Visit: Yes Status: Acute Plan: Encephalopathy likely related to recurrent UTI. Continue IV antibiotic therapy. Blood and urine cultures obtained. Case discussed in detail with daughter. Patient is DNR. Await urine cultures to determine plan of care. Daughter desires hospice at discharge regard list. Continue with current care at this time. (2) UTI (urinary tract infection) Current Visit: Yes Status: Acute Plan: Likely recurrent. Await urine culture results. Continue IV antibiotic therapy. Qualifiers: Urinary tract infection type: site unspecified Hematuria presence: without hematuria Qualified Code(s): N39.0 - Urinary tract infection, site not specified (3) Pressure ulcer of right hip Current Visit: Yes Status: Chronic Plan: Patient has chronic ulcer to the right hip. Will need to continue with previous wound care. Will discuss with her infectious disease specialist. (4) Alzheimer's dementia Current Visit: Yes Status: Chronic Plan: Patient was severe Alzheimer's dementia. Daughter desires hospice at discharge. Qualifiers: Alzheimer's disease onset: unspecified onset Dementia behavioral disturbance: without behavioral disturbance Qualified Code(s): G30.9 - Alzheimer's disease, unspecified; F02.80 - Dementia in other diseases classified elsewhere without behavioral disturbance (5) History of CVA with residual deficit Current Visit: Yes Status: Chronic Plan: Patient with residual aphasia. Continue as above. (6) Chronic renal disease Current Visit: Yes Status: Acute Plan: Acute on chronic renal disease. Will monitor closely. Continue IV fluids. Qualifiers: Chronic kidney disease stage: stage 4 (severe) Qualified Code(s): N18.4 - Chronic kidney disease, stage 4 (severe) (7) Hypertension Current Visit: Yes Status: Chronic Plan: Will provide medication. Will review home medication Qualifiers: Hypertension type: essential hypertension Qualified Code(s): I10 - Essential (primary) hypertension (8) Hypothyroidism Current Visit: Yes Status: Chronic Plan: Will need to restart home medication. Will review home medication (9) Anemia Current Visit: Yes Status: Chronic Plan: This likely chronic. Will check iron and B12 studies. Qualifiers: Anemia type: unspecified type Qualified Code(s): D64.9 - Anemia, unspecified (10) Failure to thrive Current Visit: Yes Status: Chronic Plan: Patient has been declining in health. Daughter desires hospice at discharge. Qualifiers: Failure to thrive age range: in adult Qualified Code(s): R62.7 - Adult failure to thrive (11) Malnutrition Current Visit: Yes Status: Chronic Plan: Patient has poor oral intake. Patient has been declining in health. Will pursue hospice at discharge. Qualifiers: Malnutrition type: protein-calorie malnutrition Protein-calorie malnutrition severity: severe Qualified Code(s): E43 - Unspecified severe protein-calorie malnutrition Discharge Plan: Assisted Plan to discharge in: 48 Hours Time Spent Managing Pts Care (In Minutes): 55
[2018-05-03] MEDS: PANTOPRAZOLE 40 MG INJ IVP SCH (09:07)
[2018-05-03] MEDS: ENOXAPARIN 30 MG/0.3 ML SQ SCH (09:07)
[2018-05-03 09:58] LABS: Ferritin 82.5 ng/mL (8-388)
[2018-05-03] MEDS: MEMANTINE HCL 10 MG TABLET PO SCH ×2 (10:00→20:37)
[2018-05-03] MEDS: NACHLORIDE 0.45% 1,000 ML IV SCH ×2 (11:00→20:31)
[2018-05-03] MEDS: Levofloxacin 250mg IV 250 MG/50 ML BAG IV SCH (20:30)
[2018-05-03] MEDS: DONEPEZIL HCL 5 MG TAB PO SCH (20:30)
[2018-05-03] MEDS: ATORVASTATIN 40 MG TAB PO SCH (20:30)
[2018-05-03] MEDS: ASCORBIC ACID 500 MG TABLET PO SCH (20:37)
[2018-05-04] MEDS ORDERED: PIPER/TAZO/NS 3.375gm 0 GM/0 ML BAG ONE (03:13)
[2018-05-04 05:16] LABS: Absolute Lymphocytes (CBC) 2.5 K/uL (0.7-4.9); Absolute Neutrophil 6.2 K/uL (1.8-8.0); Basophils % 0.7 % (0-1.3); Eosinophils % 3.6 % (0-4.4); Hematocrit 29.3 % (36.0-45.0); Lymphocytes % 24.9 % (15.3-44.8); MCH 26.2 pg (27.0-35.0); MCV 80.2 fL (80-100); MPV 7.8 fL (7.6-11.3); Monocytes % 9.5 % (3.3-12.3); RBC Red Blood Cell Count 3.66 M/uL (3.86-4.86)
[2018-05-04 05:38] LABS: Magnesium 2.1 mg/dL (1.8-2.4)
[2018-05-04] MEDS: PANTOPRAZOLE 40MG TABLET PO SCH (05:47)
[2018-05-04] MEDS: LEVOTHYROXINE SOD 0.025 MG TAB PO SCH (05:47)
[2018-05-04] MEDS: MULTIVITAMIN PO SCH (08:39)
[2018-05-04] MEDS: THIAMINE HCL 100 MG TABLET PO SCH (08:53)
[2018-05-04] MEDS: CLOPIDOGREL 75 MG TABLET PO SCH (08:53)
[2018-05-04] MEDS: MEMANTINE HCL 10 MG TABLET PO SCH ×2 (08:53→20:33)
[2018-05-04] MEDS: ZINC SULFATE 220 MG CAP PO SCH (08:53)
[2018-05-04] MEDS: ENOXAPARIN 30 MG/0.3 ML SQ SCH (08:54)
[2018-05-04] MEDS: FOLIC ACID 1 MG TABLET PO SCH (08:54)
[2018-05-04] MEDS: ASCORBIC ACID 500 MG TABLET PO SCH ×2 (08:57→20:33)
--- NOTE | 2018-05-04 09:48 | P.PN ---
Subjective Date of Service: 05/04/18 Primary Care Provider: [facility]-Dr. Stewart Chief Complaint: AMS Subjective: Demented, Other (Patient seems to be more alert.) Physical Examination - Vital Signs Temperature: 97.5 F Blood Pressure: 116/72 Pulse: 85 Respirations: 17 Pulse Ox (%): 97 - Physical Exam General: Alert, Demented (Severe dementia) HEENT: Atraumatic Neck: Supple Respiratory: Clear to auscultation bilaterally, Normal air movement Cardiovascular: Normal pulses, Regular rate/rhythm Gastrointestinal: Normal bowel sounds, Soft and benign, Non-distended Musculoskeletal: No erythema, No tenderness, No warmth, Other (Patient in position) Neurological: Dementia - Studies Microbiology Data (last 24 hrs): 05/02/18 14:55 Clean Catch Urine [place] Count - Final >100,000 CFU/ML. 05/02/18 14:55 Clean Catch Urine - Final Proteus Mirabilis 05/02/18 14:30 Blood - Blood Anaerobic Blood Culture - Final 05/02/18 14:30 Blood - Blood Anaerobic Blood Culture - Final Medications List Reviewed: Yes Assessment & Plan - Problems (Diagnosis) (1) Encephalopathy Current Visit: Yes Status: Acute Plan: Encephalopathy likely related to recurrent UTI. Urine culture positive for Proteus-ESBL. Patient is allergic to penicillin therefore meropenem could not be use. Urine cultures sensitive to Levaquin. Will continue with Levaquin at this time. Patient seen by infectious disease as an outpatient. Will consult infectious disease for recommendation. Daughter plans for hospice at discharge. Will need to consider oral medication at discharge. Likely tomorrow once the patient can return back to the alf. If the patient requires IV antibiotic therapy then the patient will need a PICC line. Will discuss all options daughter along with infectious disease. (2) UTI (urinary tract infection) Current Visit: Yes Status: Acute Plan: Urine culture positive for Proteus-ESBL. Continue IV Levaquin. Will discuss with infectious disease on whether the patient will require IV or oral medication at discharge. Daughter plans for hospice at discharge. Will consider oral medication. Qualifiers: Urinary tract infection type: site unspecified Hematuria presence: without hematuria Qualified Code(s): N39.0 - Urinary tract infection, site not specified (3) Pressure ulcer of right hip Current Visit: Yes Status: Chronic Plan: Patient has chronic ulcer to the right hip. Will need to continue with previous wound care. Infectious Disease to address. (4) Alzheimer's dementia Current Visit: Yes Status: Chronic Plan: Patient was severe Alzheimer's dementia. Daughter desires hospice at discharge. Qualifiers: Alzheimer's disease onset: unspecified onset Dementia behavioral disturbance: without behavioral disturbance Qualified Code(s): G30.9 - Alzheimer's disease, unspecified; F02.80 - Dementia in other diseases classified elsewhere without behavioral disturbance (5) History of CVA with residual deficit Current Visit: Yes Status: Chronic Plan: Patient with residual aphasia. Continue as above. (6) Chronic renal disease Current Visit: Yes Status: Acute Plan: Acute on chronic renal disease. Will monitor closely. Qualifiers: Chronic kidney disease stage: stage 4 (severe) Qualified Code(s): N18.4 - Chronic kidney disease, stage 4 (severe) (7) Hypertension Current Visit: Yes Status: Chronic Plan: Will continue with medication Qualifiers: Hypertension type: essential hypertension Qualified Code(s): I10 - Essential (primary) hypertension (8) Hypothyroidism Current Visit: Yes Status: Chronic Plan: Will continue with medication (9) Anemia Current Visit: Yes Status: Chronic Plan: This likely chronic. Patient with iron deficiency. Will continue with iron supplementation Qualifiers: Anemia type: iron deficiency Iron deficiency anemia type: unspecified iron deficiency Qualified Code(s): D50.9 - Iron deficiency anemia, unspecified (10) Failure to thrive Current Visit: Yes Status: Chronic Plan: Patient has been declining in health. Daughter desires hospice at discharge. Qualifiers: Failure to thrive age range: in adult Qualified Code(s): R62.7 - Adult failure to thrive (11) Malnutrition Current Visit: Yes Status: Chronic Plan: Patient has poor oral intake. Patient has been declining in health. Will pursue hospice at discharge. Qualifiers: Malnutrition type: protein-calorie malnutrition Protein-calorie malnutrition severity: severe Qualified Code(s): E43 - Unspecified severe protein-calorie malnutrition Discharge Plan: Halfway Plan to discharge in: 24 Hours Time Spent Managing Pts Care (In Minutes): 55
[2018-05-04] MEDS: DONEPEZIL HCL 5 MG TAB PO SCH (20:33)
[2018-05-04] MEDS: ATORVASTATIN 40 MG TAB PO SCH (20:33)
[2018-05-04] MEDS: ENSURE ENLIVE 237 ML CAN PO SCH (20:34)
[2018-05-04] MEDS ORDERED: Levofloxacin500mg IV 500 MG/100 ML BAG IV SCH (21:00)
--- NOTE | 2018-05-04 23:22 | CON ---
History Of Present Illness: This is an 88-year-old female with significant history of Alzheimer dise ase, dementia, stroke, aphasia, and hypertension. The patient is coming in with right hip unstageabl e ulcer to the hospital from [facility]. The patient has significant history of urinary tract infe ction in the past. Past Medical History: Includes hypothyroidism, hypertension, dementia, stroke, kidney disease, depre ssion, failure to thrive, bunion surgery, history of stroke with aphasia. Social History: Nonsmoker, nondrinker. Lives at [facility]. Family History: Noncontributory. Medications: No antibiotics at this time. The patient was given Levaquin and Zosyn earlier. Allergies: TO PENICILLIN AND BANANA. Review of Systems: Unable to obtain. Physical Examination: General: This is an 88-year-old female lying in bed, unable to communicate. Vital Signs: Temperature 97, pulse 72, respirations 16, blood pressure 138/59. HEENT: Unremarkable. Neck: Supple. Lungs: Basal crackles. Heart: S1, S2. Regular. Abdomen: Soft, nontender. Bowel sounds positive. Extremities: No edema. No muscle wasting noted. Laboratory Data: Shows WBC are 10,000, down from 13,000; hemoglobin 9.6; platelets are 309. Event [employer] ry shows sodium 141, potassium 4, chloride 110, bicarb 20, BUN 52, creatinine is 2, glucose is 81, al bumin is 2.6. Micro data: Urine is growing Proteus mirabilis, ESBL sensitive to amikacin, meropenem , Zosyn, tobramycin, and timentin. Assessment And Plan: An 88-year-old female with multiple medical problems, coming in with right hip unstageable wound, which developed rapidly because of the patient's poor nutritional status. Recomme nd to start the patient on TPN or NG tube feeding. Also recommend to start the patient on meropenem 500 mg q.12 hours, vancomycin 500 mg q.24 hours. Possible surgical debridement of the right hip. Th e patient's prognosis is very poor. Consider hospice versus long-term acute care. We will follow th e patient as needed. NF/MODL Voice ID: [id number] Report ID: [id number]
[2018-05-05 04:31] LABS: Absolute Lymphocytes (CBC) 3.2 K/uL (0.7-4.9); Absolute Neutrophil 6.2 K/uL (1.8-8.0); Basophils % 0.8 % (0-1.3); Eosinophils % 4.5 % (0-4.4); Hematocrit 28.6 % (36.0-45.0); Lymphocytes % 28.9 % (15.3-44.8); MCH 26.4 pg (27.0-35.0); MCV 79.6 fL (80-100); MPV 7.5 fL (7.6-11.3); RBC Red Blood Cell Count 3.59 M/uL (3.86-4.86)
[2018-05-05 04:55] LABS: Magnesium 1.9 mg/dL (1.8-2.4); Potassium 4.2 mmol/L (3.5-5.1)
[2018-05-05] MEDS: LEVOTHYROXINE SOD 0.025 MG TAB PO SCH (05:36)
[2018-05-05] MEDS: PANTOPRAZOLE 40MG TABLET PO SCH (05:36)
[2018-05-05] MEDS: MULTIVITAMIN PO SCH (09:00)
[2018-05-05] MEDS: ENSURE ENLIVE 237 ML CAN PO SCH ×2 (10:25→20:33)
[2018-05-05] MEDS: MEDIHONEY 44 ML TOPICAL TUBE TOP SCH (10:25)
[2018-05-05] MEDS: ENOXAPARIN 30 MG/0.3 ML SQ SCH (10:26)
[2018-05-05] MEDS: ASCORBIC ACID 500 MG TABLET PO SCH ×2 (10:27→20:34)
[2018-05-05] MEDS: MEMANTINE HCL 10 MG TABLET PO SCH ×2 (10:27→20:34)
[2018-05-05] MEDS: FOLIC ACID 1 MG TABLET PO SCH (10:27)
[2018-05-05] MEDS: CLOPIDOGREL 75 MG TABLET PO SCH (10:27)
[2018-05-05] MEDS: ZINC SULFATE 220 MG CAP PO SCH (10:27)
[2018-05-05] MEDS: THIAMINE HCL 100 MG TABLET PO SCH (10:27)
--- NOTE | 2018-05-05 17:34 | P.PN ---
Subjective Date of Service: 05/05/18 Primary Care Provider: [facility]-Dr. Stewart Chief Complaint: AMS Subjective: Doing well, Demented Physical Examination - Vital Signs Temperature: 97.5 F Blood Pressure: 127/63 Pulse: 74 Respirations: 16 Pulse Ox (%): 97 - Physical Exam General: Alert, In no apparent distress, Cooperative, Demented HEENT: Atraumatic Neck: Supple Respiratory: Clear to auscultation bilaterally, Normal air movement Cardiovascular: Normal pulses, Regular rate/rhythm Gastrointestinal: Normal bowel sounds, Soft and benign, Non-distended, No tenderness, No masses, No rebound, No guarding Musculoskeletal: No tenderness, No warmth Neurological: Normal speech, Dementia - Studies Medications List Reviewed: Yes Assessment & Plan - Problems (Diagnosis) (1) Encephalopathy Onset Date: 05/05/18 Current Visit: Yes Status: Acute Plan: Encephalopathy likely related to recurrent UTI. Urine culture positive for Proteus-ESBL. Case discussed at length with daughter. Daughter wants the patient to continue with IV antibiotic therapy before hospice is set up. Therefore will order PICC line. Arrangements for [facility] at the [facility] will be arranged. Will check to see if the patient can tolerate meropenem as this is the recommended medication. Patient currently on Levaquin. Will discontinue Levaquin. office services specialist is to arrange for IV antibiotic therapy if patient tolerates meropenem. Patient with allergy to penicillin but mild. Anticipate discharge tomorrow with PICC line in place in to continue with IV antibiotic therapy-meropenem for a total of 7 days. Thereafter daughter plans to start hospice for the patient. Patient is DNR. I will turn the service over to Dr. Awad tomorrow. I will go over the plan of care with him. (2) UTI (urinary tract infection) Onset Date: 05/05/18 Current Visit: Yes Status: Acute Plan: Urine culture positive for Proteus-ESBL. Discontinue IV Levaquin. Will change to meropenem. Will monitor this medication as the patient has penicillin allergy. If tolerates can make arrangements for IV antibiotic therapy at [facility]. Continue as above. Qualifiers: Urinary tract infection type: site unspecified Hematuria presence: without hematuria Qualified Code(s): N39.0 - Urinary tract infection, site not specified (3) Pressure ulcer of right hip Onset Date: 05/05/18 Current Visit: Yes Status: Chronic Plan: Patient has chronic ulcer to the right hip. Continue with wound care. (4) Alzheimer's dementia Onset Date: 05/05/18 Current Visit: Yes Status: Chronic Plan: Patient was severe Alzheimer's dementia. Daughter desires hospice after IV antibiotic therapy has been done. Qualifiers: Alzheimer's disease onset: unspecified onset Dementia behavioral disturbance: without behavioral disturbance Qualified Code(s): G30.9 - Alzheimer's disease, unspecified; F02.80 - Dementia in other diseases classified elsewhere without behavioral disturbance (5) History of CVA with residual deficit Current Visit: Yes Status: Chronic Plan: Patient with residual aphasia. Continue as above. (6) Chronic renal disease Onset Date: 05/05/18 Current Visit: Yes Status: Acute Plan: Acute on chronic renal disease. Will monitor closely. Qualifiers: Chronic kidney disease stage: stage 4 (severe) Qualified Code(s): N18.4 - Chronic kidney disease, stage 4 (severe) (7) Hypertension Onset Date: 05/05/18 Current Visit: Yes Status: Chronic Plan: Will continue with medication Qualifiers: Hypertension type: essential hypertension Qualified Code(s): I10 - Essential (primary) hypertension (8) Hypothyroidism Onset Date: 05/05/18 Current Visit: Yes Status: Chronic Plan: Will continue with medication (9) Anemia Onset Date: 05/05/18 Current Visit: Yes Status: Chronic Plan: This likely chronic. Patient with iron deficiency. Will continue with iron supplementation Qualifiers: Anemia type: iron deficiency Iron deficiency anemia type: unspecified iron deficiency Qualified Code(s): D50.9 - Iron deficiency anemia, unspecified (10) Failure to thrive Onset Date: 05/05/18 Current Visit: Yes Status: Chronic Plan: Patient has been declining in health. Daughter desires hospice at discharge. Qualifiers: Failure to thrive age range: in adult Qualified Code(s): R62.7 - Adult failure to thrive (11) Malnutrition Onset Date: 05/05/18 Current Visit: Yes Status: Chronic Plan: Patient has poor oral intake. Patient has been declining in health. Will pursue hospice at discharge. Qualifiers: Malnutrition type: protein-calorie malnutrition Protein-calorie malnutrition severity: severe Qualified Code(s): E43 - Unspecified severe protein-calorie malnutrition Discharge Plan: Care Home Plan to discharge in: 24 Hours Time Spent Managing Pts Care (In Minutes): 55
[2018-05-05] MEDS: ATORVASTATIN 40 MG TAB PO SCH (20:33)
[2018-05-05] MEDS: Meropenem 1,000 MG in NA CHLORIDE 0.9% 100 ML IV SCH (20:33)
[2018-05-05] MEDS: DONEPEZIL HCL 5 MG TAB PO SCH (20:34)
[2018-05-05] MEDS ORDERED: Meropenem 1000 MG/VIAL IV SCH (21:00)
--- NOTE | 2018-05-05 22:13 | PN ---
Subjective: The patient is lying in bed. Denies any headache, nausea, vomiting, chest pain, abdomin al pain, constipation, or diarrhea. Objective: Vital Signs: Temperature 97, pulse 74, respiration 16, blood pressure 127/64. Lungs: Basal crackles. Heart: S1, S2, regular. Abdomen: Soft, nontender. Bowel sounds positive. Extremity: Muscle wasting noted. Right hip wound noted. Left hip wound noted. Laboratory Data: WBC 10,900, hemoglobin 9.5, platelets are 291. Current Medications: Include meropenem. Assessment And Plan: Urinary tract infection, right hip unstageable wound, left hip wound. Poor pro gnosis. Fever, malnourishment. Continue antibiotic, supportive care, and wound care. NF/MODL Voice ID: [id number] Report ID: [id number]
[2018-05-06] MEDS: LEVOTHYROXINE SOD 0.025 MG TAB PO SCH (05:29)
[2018-05-06] MEDS: PANTOPRAZOLE 40MG TABLET PO SCH (05:29)
[2018-05-06] MEDS: ASCORBIC ACID 500 MG TABLET PO SCH ×3 (09:00→21:00)
[2018-05-06] MEDS: MEMANTINE HCL 10 MG TABLET PO SCH ×3 (09:00→21:00)
[2018-05-06] MEDS: MULTIVIT W/ MINERAL TAB PO SCH ×2 (09:00→10:19)
[2018-05-06] MEDS: CLOPIDOGREL 75 MG TABLET PO SCH ×2 (09:00→10:19)
[2018-05-06] MEDS: THIAMINE HCL 100 MG TABLET PO SCH ×2 (09:00→10:19)
[2018-05-06] MEDS: FOLIC ACID 1 MG TABLET PO SCH ×2 (09:00→10:19)
[2018-05-06] MEDS: ENSURE ENLIVE 237 ML CAN PO SCH ×3 (09:00→21:00)
[2018-05-06] MEDS: ZINC SULFATE 220 MG CAP PO SCH ×2 (09:00→10:20)
[2018-05-06] MEDS: ENOXAPARIN 30 MG/0.3 ML SQ SCH (10:18)
[2018-05-06] MEDS: Meropenem 1,000 MG in NA CHLORIDE 0.9% 100 ML IV SCH ×2 (10:18→21:49)
[2018-05-06] MEDS: MEDIHONEY 44 ML TOPICAL TUBE TOP SCH (10:21)
--- NOTE | 2018-05-06 17:14 | RAD REPORT ---
EXAM DESCRIPTION: RAD - Chest Single View - 05/06/2018 5:01 pm CLINICAL HISTORY: PICC line placement<Reason For Exam>PICC line placement COMPARISON: Chest Single View dated 05/02/2018 FINDINGS: Portable chest was obtained following placement of a right upper extremity PICC line. The catheter tip is in the distal SVC
--- NOTE | 2018-05-06 19:35 | P.PN ---
Subjective Date of Service: 05/06/18 Primary Care Provider: [facility]-Dr. Stewart Chief Complaint: AMS No fever, he remained confused, possible close to his baseline. Physical Examination - Vital Signs Temperature: 98.7 F Blood Pressure: 112/79 Pulse: 86 Respirations: 18 Pulse Ox (%): 96 - Physical Exam General: Alert, In no apparent distress, Demented, Confused Respiratory: Clear to auscultation bilaterally, Normal air movement Cardiovascular: Normal S1 S2, No gallops Gastrointestinal: Normal bowel sounds, No tenderness Musculoskeletal: No tenderness Integumentary: No rashes Neurological: Normal speech, Normal tone, Normal affect - Studies Medications List Reviewed: Yes Assessment And Plan - Current Problems (Diagnosis) (1) Acute encephalopathy Current Visit: Yes Status: Acute Plan: Likely secondary to UTI on top of his baseline dementia. (2) UTI (urinary tract infection) Onset Date: 05/05/18 Current Visit: Yes Status: Acute Plan: Urine culture report Proteus mirabilis with ESBL. The patient is on meropenem, plan to place a PICC line to continue IV antibiotics for at least 10-14 days in the skilled nurse facility. Family members were considering to start hospice after antibiotic treatment. Social service is assisting in this case. Qualifiers: Urinary tract infection type: site unspecified Hematuria presence: without hematuria Qualified Code(s): N39.0 - Urinary tract infection, site not specified (3) Alzheimer's dementia Onset Date: 05/05/18 Current Visit: Yes Status: Chronic Qualifiers: Alzheimer's disease onset: unspecified onset Dementia behavioral disturbance: without behavioral disturbance Qualified Code(s): G30.9 - Alzheimer's disease, unspecified; F02.80 - Dementia in other diseases classified elsewhere without behavioral disturbance (4) History of CVA with residual deficit Current Visit: Yes Status: Chronic - Code Status/Comfort Care Code Status Assessed: Yes Code Status: Do Not Intubate
[2018-05-06] MEDS: ATORVASTATIN 40 MG TAB PO SCH (21:00)
[2018-05-06] MEDS: DONEPEZIL HCL 5 MG TAB PO SCH (21:00)
[2018-05-07] MEDS: PANTOPRAZOLE 40MG TABLET PO SCH ×2 (05:36→05:37)
[2018-05-07] MEDS: LEVOTHYROXINE SOD 0.025 MG TAB PO SCH ×2 (05:36→05:38)
[2018-05-07] MEDS: ENOXAPARIN 30 MG/0.3 ML SQ SCH (10:04)
[2018-05-07] MEDS: Meropenem 1,000 MG in NA CHLORIDE 0.9% 100 ML IV SCH ×2 (10:04→20:15)
[2018-05-07] MEDS: THIAMINE HCL 100 MG TABLET PO SCH (10:13)
[2018-05-07] MEDS: FOLIC ACID 1 MG TABLET PO SCH (10:13)
[2018-05-07] MEDS: ZINC SULFATE 220 MG CAP PO SCH (10:13)
[2018-05-07] MEDS: MULTIVIT W/ MINERAL TAB PO SCH (10:14)
[2018-05-07] MEDS: ASCORBIC ACID 500 MG TABLET PO SCH ×3 (10:14→21:00)
[2018-05-07] MEDS: MEMANTINE HCL 10 MG TABLET PO SCH ×3 (10:14→21:00)
[2018-05-07] MEDS: CLOPIDOGREL 75 MG TABLET PO SCH (10:14)
[2018-05-07] MEDS: MEDIHONEY 44 ML TOPICAL TUBE TOP SCH (10:15)
[2018-05-07] MEDS: ENSURE ENLIVE 237 ML CAN PO SCH ×3 (10:16→21:00)
--- NOTE | 2018-05-07 15:32 | P.PN ---
Subjective Date of Service: 05/07/18 Primary Care Provider: [facility]-Dr. Stewart Chief Complaint: AMS Patient seen at the bedside with RN. Chart reviewed. Case discussed with infectious disease. -no complaints to offer overnight -no complaints to offer a this morning -nurse at bedside denies patient having any fever chills nausea vomiting symptoms at this time. Review of Systems 10-point ROS is otherwise unremarkable Physical Examination - Vital Signs Temperature: 97.5 F Blood Pressure: 110/67 Pulse: 82 Respirations: 16 Pulse Ox (%): 95 - Physical Exam General: Alert, Oriented x1, Demented HEENT: Atraumatic, PERRLA, EOMI Neck: Supple, JVD not distended Respiratory: Clear to auscultation bilaterally, Normal air movement Cardiovascular: Regular rate/rhythm, Normal S1 S2 Gastrointestinal: Normal bowel sounds, No tenderness Musculoskeletal: No tenderness Integumentary: No rashes Lymphatics: No axilla or inguinal lymphadenopathy - Studies Microbiology Data (last 24 hrs): 05/02/18 14:30 Blood - Blood Aerobic Blood Culture - Final No growth in 5 days. 05/02/18 14:30 Blood - Blood Anaerobic Blood Culture - Final 05/02/18 14:30 Blood - Blood Aerobic Blood Culture - Final No growth in 5 days. 05/02/18 14:30 Blood - Blood Anaerobic Blood Culture - Final Medications List Reviewed: Yes Assessment And Plan - Current Problems (Diagnosis) (1) UTI (urinary tract infection) Onset Date: 05/05/18 Current Visit: Yes Status: Acute Plan: UA with UTI. Culture + for ESBL -IV meropenum -ID consulted. appreciate reccs -Picc Line placed -Awaiting Placement at the [facility] for IV abx Qualifiers: Urinary tract infection type: site unspecified Hematuria presence: without hematuria Qualified Code(s): N39.0 - Urinary tract infection, site not specified (2) Acute encephalopathy Current Visit: Yes Status: Resolved (3) Pressure ulcer of right hip Onset Date: 05/05/18 Current Visit: Yes Status: Chronic Qualifiers: Pressure injury stage: unspecified pressure injury stage Qualified Code(s) : L89.219 - Pressure ulcer of right hip, unspecified stage (4) Alzheimer's dementia Onset Date: 05/05/18 Current Visit: Yes Status: Chronic Qualifiers: Alzheimer's disease onset: unspecified onset Dementia behavioral disturbance: without behavioral disturbance Qualified Code(s): G30.9 - Alzheimer's disease, unspecified; F02.80 - Dementia in other diseases classified elsewhere without behavioral disturbance (5) History of CVA with residual deficit Current Visit: Yes Status: Chronic (6) Chronic renal disease Onset Date: 05/05/18 Current Visit: Yes Status: Chronic Qualifiers: Chronic kidney disease stage: stage 4 (severe) Qualified Code(s): N18.4 - Chronic kidney disease, stage 4 (severe) (7) Hypertension Onset Date: 05/05/18 Current Visit: Yes Status: Chronic Qualifiers: Hypertension type: essential hypertension Qualified Code(s): I10 - Essential (primary) hypertension (8) Hypothyroidism Onset Date: 05/05/18 Current Visit: Yes Status: Chronic Qualifiers: Hypothyroidism type: acquired Qualified Code(s): E03.9 - Hypothyroidism, unspecified (9) Malnutrition Onset Date: 05/05/18 Current Visit: Yes Status: Chronic Qualifiers: Malnutrition type: protein-calorie malnutrition Protein-calorie malnutrition severity: severe Qualified Code(s): E43 - Unspecified severe protein-calorie malnutrition - Plan Pending Placement at this time at [facility] for IV abx Discharge Plan: Long-Term Plan to discharge in: 48 Hours - Code Status/Comfort Care Code Status Assessed: Yes Code Status: Do Not Resuscitate Critical Care: No
[2018-05-07] MEDS: ATORVASTATIN 40 MG TAB PO SCH (20:15)
[2018-05-07] MEDS: DONEPEZIL HCL 5 MG TAB PO SCH ×2 (20:15→21:00)
[2018-05-08] MEDS: LEVOTHYROXINE SOD 0.025 MG TAB PO SCH (06:00)
[2018-05-08] MEDS: PANTOPRAZOLE 40MG TABLET PO SCH (06:18)
[2018-05-08] MEDS: ASCORBIC ACID 500 MG TABLET PO SCH ×2 (09:47→21:58)
[2018-05-08] MEDS: MULTIVIT W/ MINERAL TAB PO SCH (09:47)
[2018-05-08] MEDS: FOLIC ACID 1 MG TABLET PO SCH (09:48)
[2018-05-08] MEDS: THIAMINE HCL 100 MG TABLET PO SCH (09:48)
[2018-05-08] MEDS: CLOPIDOGREL 75 MG TABLET PO SCH (09:48)
[2018-05-08] MEDS: Meropenem 1,000 MG in NA CHLORIDE 0.9% 100 ML IV SCH ×2 (09:48→21:58)
[2018-05-08] MEDS: MEMANTINE HCL 10 MG TABLET PO SCH ×2 (09:49→21:57)
[2018-05-08] MEDS: ENOXAPARIN 30 MG/0.3 ML SQ SCH (09:50)
[2018-05-08] MEDS: ENSURE ENLIVE 237 ML CAN PO SCH ×2 (09:50→21:58)
[2018-05-08] MEDS: MEDIHONEY 44 ML TOPICAL TUBE TOP SCH (09:51)
[2018-05-08] MEDS: ZINC SULFATE 220 MG CAP PO SCH (09:54)
--- NOTE | 2018-05-08 15:45 | P.PN ---
Subjective Date of Service: 05/08/18 Primary Care Provider: [facility]-Dr. Stewart Chief Complaint: AMS Patient seen at the bedside with RN. Chart reviewed. Case discussed with infectious disease. -no complaints to offer overnight -no complaints to offer a this morning -nurse at bedside denies patient having any fever chills nausea vomiting symptoms at this time. Review of Systems 10-point ROS is otherwise unremarkable Physical Examination - Vital Signs Temperature: 98.7 F Blood Pressure: 121/67 Pulse: 95 Respirations: 18 Pulse Ox (%): 95 - Physical Exam General: Alert, In no apparent distress, Demented HEENT: Atraumatic, PERRLA, EOMI Neck: Supple, JVD not distended Respiratory: Clear to auscultation bilaterally, Normal air movement Cardiovascular: Regular rate/rhythm, Normal S1 S2 Gastrointestinal: Normal bowel sounds, No tenderness Musculoskeletal: No tenderness Integumentary: No rashes Neurological: Normal tone, Normal affect, Abnormal speech Lymphatics: No axilla or inguinal lymphadenopathy - Studies Microbiology Data (last 24 hrs): 05/02/18 14:30 Blood - Blood Aerobic Blood Culture - Final No growth in 5 days. 05/02/18 14:30 Blood - Blood Anaerobic Blood Culture - Final 05/02/18 14:30 Blood - Blood Aerobic Blood Culture - Final No growth in 5 days. 05/02/18 14:30 Blood - Blood Anaerobic Blood Culture - Final Medications List Reviewed: Yes Assessment And Plan - Current Problems (Diagnosis) (1) UTI (urinary tract infection) Onset Date: 05/05/18 Current Visit: Yes Status: Acute Plan: UA with UTI. Culture + for ESBL -IV meropenum -ID consulted. appreciate reccs -Picc Line placed -Awaiting Placement at the [facility] for IV abx Qualifiers: Urinary tract infection type: site unspecified Hematuria presence: without hematuria Qualified Code(s): N39.0 - Urinary tract infection, site not specified (2) Acute encephalopathy Current Visit: Yes Status: Resolved (3) Pressure ulcer of right hip Onset Date: 05/05/18 Current Visit: Yes Status: Chronic Qualifiers: Pressure injury stage: unspecified pressure injury stage Qualified Code(s) : L89.219 - Pressure ulcer of right hip, unspecified stage (4) Alzheimer's dementia Onset Date: 05/05/18 Current Visit: Yes Status: Chronic Qualifiers: Alzheimer's disease onset: unspecified onset Dementia behavioral disturbance: without behavioral disturbance Qualified Code(s): G30.9 - Alzheimer's disease, unspecified; F02.80 - Dementia in other diseases classified elsewhere without behavioral disturbance (5) History of CVA with residual deficit Current Visit: Yes Status: Chronic (6) Chronic renal disease Onset Date: 05/05/18 Current Visit: Yes Status: Chronic Qualifiers: Chronic kidney disease stage: stage 4 (severe) Qualified Code(s): N18.4 - Chronic kidney disease, stage 4 (severe) (7) Hypertension Onset Date: 05/05/18 Current Visit: Yes Status: Chronic Qualifiers: Hypertension type: essential hypertension Qualified Code(s): I10 - Essential (primary) hypertension (8) Hypothyroidism Onset Date: 05/05/18 Current Visit: Yes Status: Chronic Qualifiers: Hypothyroidism type: acquired Qualified Code(s): E03.9 - Hypothyroidism, unspecified (9) Malnutrition Onset Date: 05/05/18 Current Visit: Yes Status: Chronic Qualifiers: Malnutrition type: protein-calorie malnutrition Protein-calorie malnutrition severity: severe Qualified Code(s): E43 - Unspecified severe protein-calorie malnutrition - Plan Pending Placement at this time at [facility] for IV abx
[2018-05-08 15:56] LABS: Absolute Lymphocytes (CBC) 3.4 K/uL (0.7-4.9); Absolute Neutrophil 5.2 K/uL (1.8-8.0); Basophils % 1.1 % (0-1.3); Eosinophils % 3.4 % (0-4.4); Hematocrit 30.1 % (36.0-45.0); Lymphocytes % 33.5 % (15.3-44.8); MCH 25.9 pg (27.0-35.0); MCV 78.6 fL (80-100); MPV 7.6 fL (7.6-11.3); Monocytes % 10.2 % (3.3-12.3); RBC Red Blood Cell Count 3.82 M/uL (3.86-4.86)
[2018-05-08 16:15] LABS: Potassium 4.4 mmol/L (3.5-5.1)
--- NOTE | 2018-05-08 19:11 | PN ---
Subjective: The patient lying in bed. Denies any discomfort at this time. No new events. Objective: Vital Signs: Temperature 98, pulse 95, respiration 18, blood pressure 121/67. Lungs: Basilar crackles. Heart: S1, S2. Regular. Abdomen: Soft, nontender. Bowel sounds positive. Extremity: Wounds noted. Laboratory Data: Shows WBC 10.9, hemoglobin 9.5, platelets 291 from 05/05. Micro-data is growing Pr oteus mirabilis in the urine. Hip wounds noted. Assessment And Plan: Right hip un-stageable wound, left hip stage III wound, severe malnourishment, pending nutritional supplements. Continue IV antibiotic. Needs debridement to the wound. Possible long-term acute care. We will follow the patient closely. Repeat CBC and BMP. NF/MODL Voice ID: [id number] Report ID: [id number]
[2018-05-08] MEDS: ATORVASTATIN 40 MG TAB PO SCH (21:00)
[2018-05-08] MEDS: DONEPEZIL HCL 5 MG TAB PO SCH (21:57)
[2018-05-09 04:36] VITALS: O2SAT 95
[2018-05-09] MEDS: PANTOPRAZOLE 40MG TABLET PO SCH (06:00)
[2018-05-09] MEDS: LEVOTHYROXINE SOD 0.025 MG TAB PO SCH (06:00)
[2018-05-09] MEDS: ENSURE ENLIVE 237 ML CAN PO SCH (09:00)
[2018-05-09] MEDS: ZINC SULFATE 220 MG CAP PO SCH (09:00)
[2018-05-09] MEDS: MEDIHONEY 44 ML TOPICAL TUBE TOP SCH (09:00)
[2018-05-09] MEDS: MULTIVIT W/ MINERAL TAB PO SCH (09:23)
[2018-05-09] MEDS: MEMANTINE HCL 10 MG TABLET PO SCH (09:23)
[2018-05-09] MEDS: ASCORBIC ACID 500 MG TABLET PO SCH (09:23)
[2018-05-09] MEDS: THIAMINE HCL 100 MG TABLET PO SCH (09:23)
[2018-05-09] MEDS: ENOXAPARIN 30 MG/0.3 ML SQ SCH (09:24)
[2018-05-09] MEDS: FOLIC ACID 1 MG TABLET PO SCH (09:24)
[2018-05-09] MEDS: Meropenem 1,000 MG in NA CHLORIDE 0.9% 100 ML IV SCH (09:32)
[2018-05-09 16:58] VITALS: BP 131/70; TEMP 97.4
--- NOTE | 2018-05-09 21:18 | PN ---
Subjective: The patient lying in bed, not in any acute distress. Objective: Vital signs: Temperature 97, pulse 80, respiration 18, blood pressure 125/57. Lungs: Basal crackles. Heart: S1, S2. Regular. Abdomen: Soft, nontender. Bowel sounds positive. Extremity: No edema. Right hip wound noted. Medications: The patient is currently on meropenem. Laboratory Data: White count is 10,000, hemoglobin 9.9, platelets 291. Sodium 144, potassium 4.4, c hloride 112, bicarb 25, BUN 30, creatinine 1.2, glucose 104. Micro data, urine culture is growing Pr oteus mirabilis. Assessment And Plan: Right hip unstageable wound, left hip stage III wound, Proteus mirabilis in the urine, urinary tract infection. Continue meropenem, severe malnourishment. Continue supportive car e and nutritional care. Consider hospice care. We will follow the patient as needed. ANNELISE/BISHNU Voice ID: [id number] Report ID: [id number]
--- NOTE | 2018-05-29 16:01 | P.DS ---
Admission Date: 05/02/18 Discharge Date: 05/29/18 Primary Care Provider: [facility] / [facility]-Dr. Stewart Disposition: TRANSFER TO SNF - MEDICAL Discharge Condition: GOOD Reason for Admission: AMS - Problems (1) UTI (urinary tract infection) Onset Date: 05/05/18 Status: Acute Qualifiers: Urinary tract infection type: site unspecified Hematuria presence: without hematuria Qualified Code(s): N39.0 - Urinary tract infection, site not specified (2) Acute encephalopathy Status: Resolved (3) Pressure ulcer of right hip Onset Date: 05/05/18 Status: Chronic Qualifiers: Pressure injury stage: unspecified pressure injury stage Qualified Code(s) : L89.219 - Pressure ulcer of right hip, unspecified stage (4) Alzheimer's dementia Onset Date: 05/05/18 Status: Chronic Qualifiers: Alzheimer's disease onset: unspecified onset Dementia behavioral disturbance: without behavioral disturbance Qualified Code(s): G30.9 - Alzheimer's disease, unspecified; F02.80 - Dementia in other diseases classified elsewhere without behavioral disturbance (5) History of CVA with residual deficit Status: Chronic (6) Chronic renal disease Onset Date: 05/05/18 Status: Chronic Qualifiers: Chronic kidney disease stage: stage 4 (severe) Qualified Code(s): N18.4 - Chronic kidney disease, stage 4 (severe) (7) Hypertension Onset Date: 05/05/18 Status: Chronic Qualifiers: Hypertension type: essential hypertension Qualified Code(s): I10 - Essential (primary) hypertension (8) Hypothyroidism Onset Date: 05/05/18 Status: Chronic Qualifiers: Hypothyroidism type: acquired Qualified Code(s): E03.9 - Hypothyroidism, unspecified (9) Malnutrition Onset Date: 05/05/18 Status: Chronic Qualifiers: Malnutrition type: protein-calorie malnutrition Protein-calorie malnutrition severity: severe Qualified Code(s): E43 - Unspecified severe protein-calorie malnutrition Brief History of Present Illness: 88-year-old female presented emergency room for altered mental status and abnormal lab. Patient with prior history of Alzheimer's dementia, chronic renal disease, previous CVA with aphasia and hypertension. The patient has been having poor oral intake. This is been ongoing. She has had altered mental status changes including increased sleep. Daughter present at bedside reports that she has been acting differently. Patient has been at the intermediate since February. Patient has a right hip ulcer that is being treated by infectious disease. Daughter reports that she has been declining in health. Weight has decreased is well. Daughter reports that the patient has had a history of UTIs in the past. She has been on medications orally for UTI. In the ER patient evaluated. White count 13.0. Lactic acid within normal range. BUN of 64, creatinine 2.2 with a GFR 21. Urinalysis was significant for bacteria. Chest x-ray unremarkable. Patient was admitted for further treatment of UTI and altered mental status. When I saw the patient ER, patient with severe dementia. She did not appear in any distress. Daughter at bedside. Hospital Course: Overall during the hospital stay patient remained stable The patient was initially admitted to the hospital for altered mental status was found to have UTI was treated with IV antibiotics. Patient was found to have urine culture that was positive for ESBL and thus was continued on IV meropenem. Patient was transferred back to [facility] / [facility] once she was having appropriate mentation and her IV antibiotics were set for total of 14 days. Patient did not have any other complications while here in the hospital. Vital Signs/Physical Exam: Temp Pulse Resp BP Pulse Ox 97.4 F 75 18 131/70 97 05/09/18 16:00 05/09/18 16:00 05/09/18 16:00 05/09/18 16:00 05/09/18 16:00 General: Alert, In no apparent distress HEENT: Atraumatic, PERRLA, EOMI Neck: Supple, JVD not distended Respiratory: Clear to auscultation bilaterally, Normal air movement Cardiovascular: Regular rate/rhythm, Normal S1 S2 Gastrointestinal: Normal bowel sounds, No tenderness Musculoskeletal: No tenderness Integumentary: No rashes Neurological: Normal speech, Normal tone, Normal affect Lymphatics: No axilla or inguinal lymphadenopathy Laboratory Data at Discharge: WBC 10.0 K/uL (4.3-10.9) 05/08/18 13:30 Hgb 9.9 g/dL (12.0-15.0) L 05/08/18 13:30 Hct 30.1 % (36.0-45.0) L 05/08/18 13:30 Plt Count 291 K/uL (152-406) 05/08/18 13:30 PT 12.0 SECONDS (9.5-12.5) 05/02/18 14:30 INR 1.02 05/02/18 14:30 Sodium 144 mmol/L (136-145) 05/08/18 13:30 Potassium 4.4 mmol/L (3.5-5.1) 05/08/18 13:30 BUN 30 mg/dL (7-18) H 05/08/18 13:30 Creatinine 1.20 mg/dL (0.55-1.3) 05/08/18 13:30 Glucose 104 mg/dL (74-106) 05/08/18 13:30 Magnesium 1.9 mg/dL (1.8-2.4) 05/05/18 04:13 Total Bilirubin 0.4 mg/dL (0.2-1.0) 05/02/18 14:30 AST 26 U/L (15-37) 05/02/18 14:30 ALT 25 U/L (12-78) 05/02/18 14:30 Alkaline Phosphatase 99 U/L (45-117) 05/02/18 14:30 Lipase 183 U/L (73-393) 05/02/18 14:30 Home Medications: Levothyroxine [Synthroid*] 25 mcg PO DAILY 04/21/12 Donepezil HCl 10 mg PO BEDTIME 12/09/17 Memantine HCl 5 mg PO Q12H 12/09/17 Atorvastatin Calcium 40 mg PO BEDTIME #30 tablet 12/13/17 Clopidogrel Bisulfate [Plavix*] 75 mg PO DAILY #30 tablet 12/13/17 Amlodipine [Norvasc*] 5 mg PO Q12H 05/03/18 Ascorbic Acid 500 mg PO BID 05/03/18 Calcitrol [Rocaltrol*] 0.25 mcg PO Q48H 05/03/18 Cetirizine HCl [Zyrtec] 10 mg PO BEDTIME 05/03/18 Multivitamin [Multivitamins] 2 each PO DAILY 05/03/18 Zinc Sulfate [Zinc Sulfate*] 220 mg PO DAILY 05/03/18 Meropenem [Merrem*] 1,000 mg IV BID #20 vial 05/09/18 New Medications: Meropenem [Merrem*] 1,000 mg IV BID #20 vial Patient Discharge Instructions: please f.u with PCP in 1 week post discharge. New medication. Meropenum 1g BID for 10 days Diet: Regular Activity: Ad alem Followup: Susy Mon MD [Primary Care Provider] - 1 Week
== END 2018-05-09 18:06 | DRG 689 ==
LOC: ER 13:55 → OBSVTOIN 18:15 → ERHOLD 18:15 → 4TH 20:19 → INP 05-06 14:54
PROVIDERS: ADMIT Family Medicine; ATTEND Family Medicine
PROC: 02HV33Z Insertion of Infusion Device into Superior Vena Cava, Percutaneous Approach (ICD-10-PCS; principal; 2018-05-06)
DX: N39.0 Urinary tract infection, site not specified (principal); L89.223 Pressure ulcer of left hip, stage 3; E43 Unspecified severe protein-calorie malnutrition; G93.40 Encephalopathy, unspecified; N18.4 Chronic kidney disease, stage 4 (severe); L89.210 Pressure ulcer of right hip, unstageable; B96.4 Proteus (mirabilis) (morganii) as the cause of diseases classified elsewhere; G30.9 Alzheimer's disease, unspecified; F02.80 Dementia in other diseases classified elsewhere, unspecified severity, without behavioral disturbance, psychotic disturbance, mood disturbance, and anxiety; E03.9 Hypothyroidism, unspecified; I12.9 Hypertensive chronic kidney disease with stage 1 through stage 4 chronic kidney disease, or unspecified chronic kidney disease; Z16.12 Extended spectrum beta lactamase (ESBL) resistance; D50.9 Iron deficiency anemia, unspecified; I69.320 Aphasia following cerebral infarction; Z88.0 Allergy status to penicillin; Z91.018 Allergy to other foods; Z66 Do not resuscitate; Z79.02 Long term (current) use of antithrombotics/antiplatelets; Z79.82 Long term (current) use of aspirin
CPT/HCPCS: 36415; 51702; 71045; 80048; 80076; 81003; 81015; 82550; 82607; 82728; 83540; 83605; 83690; 83735; 84134; 84439; 84443; 84466; 84484; 85025; 85610; 87040; 87077; 87086; 87088; 87186; 93005; 96365; 99285; C9113; J0696; J1650; J2543; J7030